=== PATIENT | female | born 1990 | race Caucasian/White ===

== ENCOUNTER 2016-08-05 14:04 | Inpatient (IN) | payer SELFPAY ==
[~2016-08-05] VITALS: Ht 170.2 cm; Wt 91.1 kg
[~2016-08-05 14:04] MED LIST: HYDR-3533 PO; NORC10TA2 PO; ZOFR4TAB3 SL
[2016-08-05 14:10] VITALS: BP 156/103; PULSE 91; RESP 15; TEMP 98.1; O2SAT 99
[2016-08-05] MEDS ORDERED: SODIUM CHLOR 0.9% 1000 ML INJ 1,000 ML IV SCH (14:25)
[2016-08-05] MEDS ORDERED: SODIUM CHLORIDE 0.9% FLUSH 10 ML FLUSH IV FLUSH PRN ×2 (14:30→17:00)
[2016-08-05] MEDS ORDERED: FAMOTIDINE 20 MG/2 ML VIAL IV PUSH ONE (14:30)
[2016-08-05] MEDS ORDERED: ONDANSETRON HCL 4 MG/2 ML VIAL IVP ONE (14:30)
[2016-08-05] MEDS ORDERED: PANTOPRAZOLE SODIUM 40 MG VIAL IVP ONE (14:30)
--- NOTE | 2016-08-05 14:38 | PD ---
HPI Chief Complaint: GI Complaint Time Seen by Provider: 14:25 Travel History International Travel<30 days: No Contact w/Intl Traveler<30days: No Traveled to known affect area: No History of Present Illness HPI Patient presents with complaints of nausea and vomiting for 3 days. Reports poor fluid and by mouth intake. Denies any blood per emesis. Denies any change in bowel habits. Denies any nausea or fever. Denies . Denies any sick contacts. Denies any new antibiotics, travel, new foods or picnics. PFSH Past Medical History ADHD: No Autoimmune Disease: No Blood Disorders: No Anxiety: Yes Depression: Yes Cancer: No Cardiovascular Problems: No Cerebrovascular Accident: No Diabetes: No Diminished Hearing: No Endocrine: No Gastrointestinal Disorders: Yes GERD: Yes (HEARTBURN) Genitourinary: No Headaches: Yes Musculoskeletal: No Neurologic: Yes Psychiatric: Yes Reproductive: No Respiratory: No Migraines: No Seizures: No Thyroid Disease: No Ulcer: No Influenza Vaccination: No ?: Not LMP: 2 WEEKS : 2 Para: 1 Miscarriage: 0 : 1 Past Surgical History Appendectomy: No Cholecystectomy: No Neurologic Surgery: No Other Surgery: No Social History Alcohol Use: Yes (OCC.) Tobacco Use: Yes (1/2 PPD) Substance Use: No Allergies-Medications (Allergen,Severity, Reaction): Coded Allergies: Alcohol (Verified Allergy, Severe, SKING IRRITATION, 08/05/16) Reported Meds & Prescriptions Reported Meds & Active Scripts Active Review of Systems General / Constitutional: No: Fever Eyes: No: Visual changes HENT: No: Headaches Cardiovascular: No: Chest Pain or Discomfort Respiratory: No: Shortness of Breath Gastrointestinal: Positive: Nausea, Vomiting, No: Abdominal Pain Genitourinary: No: Dysuria Musculoskeletal: No: Pain Skin: No Rash Neurologic: No: Weakness Psychiatric: No: Depression Endocrine: No: Polydipsia Hematologic/Lymphatic: No: Easy Bruising Physical Exam Narrative GENERAL: Well-nourished, well-developed patient. SKIN: Focused skin assessment warm/dry. HEAD: Normocephalic. EYES: No scleral icterus. No injection or drainage. NECK: Supple, trachea midline. No JVD or lymphadenopathy. CARDIOVASCULAR: Regular rate and rhythm without murmurs, gallops, or rubs. RESPIRATORY: Breath sounds equal bilaterally. No accessory muscle use. GASTROINTESTINAL: Abdomen soft, non-tender, nondistended. MUSCULOSKELETAL: No cyanosis, or edema. BACK: Nontender without obvious deformity. No CVA tenderness. Data Data Last Documented VS Vital Signs Date Time Temp Pulse Resp B/P Pulse Ox O2 Delivery O2 Flow Rate FiO2 08/05/16 16:11 65 18 131/80 100 Room Air 08/05/16 14:10 98.1 Orders Iv Access Insert/Monitor (08/05/16 14:25) Ecg Monitoring (08/05/16 14:25) Oximetry (08/05/16 14:25) Ondansetron Inj (Zofran Inj) (08/05/16 14:30) Pantoprazole Inj (Protonix Inj) (08/05/16 14:30) Sodium Chlor 0.9% 1000 Ml Inj (Ns 1000 M (08/05/16 14:25) Sodium Chloride 0.9% Flush (Ns Flush) (08/05/16 14:30) Famotidine Inj (Pepcid Inj) (08/05/16 14:30) Metoclopramide Inj (Reglan Inj) (08/05/16 15:00) Diphenhydramine Inj (Benadryl Inj) (08/05/16 15:00) Prochlorperazine Inj (Compazine Inj) (08/05/16 15:45) Sodium Chlor 0.9% 1000 Ml Inj (Ns 1000 M (08/05/16 16:00) Complete Blood Count With Diff (08/05/16 15:54) Comprehensive Metabolic Panel (08/05/16 15:54) Lipase (08/05/16 15:54) Ed Urine Pregnancytest Poc (08/05/16 15:54) Urinalysis - C+S If Indicated (08/05/16 15:54) Urine Culture (08/05/16 15:30) Ceftriaxone Inj (Rocephin Inj) (08/05/16 16:30) Ns + Kcl 20 Meq Inj (Ns + Kcl 20 Meq Inj (08/05/16 16:45) Ondansetron Inj (Zofran Inj) (08/05/16 17:00) Admit Order (Ed Use Only) (08/05/16 16:55) Vital Signs (Adult) Q4H (08/05/16 16:57) Activity Oob Ad Carolyn (08/05/16 16:57) Diet Regular Basic (08/05/16 Dinner) Sodium Chlor 0.9% 1000 Ml Inj (Ns 1000 M (08/05/16 16:57) Sodium Chloride 0.9% Flush (Ns Flush) (08/05/16 17:00) Sodium Chloride 0.9% Flush (Ns Flush) (08/05/16 21:00) Ondansetron Inj (Zofran Inj) (08/05/16 17:00) Complete Blood Count With Diff (08/06/16 06:00) Scd Bilateral/Knee High VALENTIN.BID (08/05/16 16:57) Naloxone Inj (Narcan Inj) (08/05/16 17:00) Potassium Chlor 20 Meq Premix (Kcl 20 Me (08/05/16 17:15) Potassium, Serum (K) (08/05/16 20:00) Comprehensive Metabolic Panel (08/06/16 06:00) Labs Laboratory Tests Test 08/05/16 08/05/16 14:30 15:30 White Blood Count 13.6 TH/MM3 Red Blood Count 4.79 MIL/MM3 Hemoglobin 15.8 GM/DL Hematocrit 46.2 % Mean Corpuscular Volume 96.3 FL Mean Corpuscular Hemoglobin 33.0 PG Mean Corpuscular Hemoglobin 34.3 % Concent Red Cell Distribution Width 15.8 % Platelet Count 216 TH/MM3 Mean Platelet Volume 10.1 FL Neutrophils (%) (Auto) 84.9 % Lymphocytes (%) (Auto) 8.7 % Monocytes (%) (Auto) 4.5 % Eosinophils (%) (Auto) 0.0 % Basophils (%) (Auto) 1.9 % Neutrophils # (Auto) 11.5 TH/MM3 Lymphocytes # (Auto) 1.2 TH/MM3 Monocytes # (Auto) 0.6 TH/MM3 Eosinophils # (Auto) 0.0 TH/MM3 Basophils # (Auto) 0.3 TH/MM3 CBC Comment DIFF FINAL Differential Comment Sodium Level 136 MEQ/L Potassium Level 2.9 MEQ/L Chloride Level 95 MEQ/L Carbon Dioxide Level 28.9 MEQ/L Anion Gap 12 MEQ/L Blood Urea Nitrogen 13 MG/DL Creatinine 0.85 MG/DL Estimat Glomerular Filtration 81 ML/MIN Rate Random Glucose 118 MG/DL Calcium Level 9.4 MG/DL Total Bilirubin 1.2 MG/DL Aspartate Amino Transf 46 U/L (AST/SGOT) Alanine Aminotransferase 103 U/L (ALT/SGPT) Alkaline Phosphatase 84 U/L Total Protein 8.6 GM/DL Albumin 4.4 GM/DL Lipase 92 U/L Urine Collection Type CLEAN CATCH Urine Color SHANA Urine Turbidity MOD Urine pH 7.0 Urine Specific [place] GREATER THAN 1.035 Urine Protein 100 mg/dL Urine Glucose (UA) NEG mg/dL Urine Ketones 80 OR GREATER mg/dL Urine Occult Blood NEG Urine Nitrite POS Urine Bilirubin MOD Urine Leukocyte Esterase TRACE Urine WBC 9-14 /hpf Urine Squamous Epithelial > 8 /hpf Cells Urine Amorphous Sediment FEW Urine Bacteria FEW /hpf Microscopic Urinalysis Comment CULTURE INDICATED Urine Collection Time 1525 MDM Medical Decision Making Medical Screen Exam Complete: Yes Emergency Medical Condition: Yes Differential Diagnosis Gastritis, esophageal stricture, small bowel obstruction Narrative Course Assessment and plan discussed with patient and grandmother at bedside. She did not respond to Zofran Protonix famotidine or Reglan and Benadryl. Trial of Compazine. Physician Communication Physician Communication Case discussed and care transferred to Jaylon Levi MD August 05, 2016 14:38
[2016-08-05 14:41] VITALS: RESP 18; O2SAT 99
[2016-08-05] MEDS ORDERED: METOCLOPRAMIDE HCL 10 MG/2 ML VIAL IV PUSH ONE (15:00)
[2016-08-05] MEDS ORDERED: diphenhydrAMINE HCL 50 MG/ML VIAL IV PUSH ONE (15:00)
[2016-08-05 15:10] VITALS: BP 166/90; PULSE 60; RESP 18; O2SAT 98
[2016-08-05] MEDS ORDERED: PROCHLORPERAZINE INJ 10 MG/2 ML VIAL IM ONE (15:45)
--- NOTE | 2016-08-05 15:54 | PD ---
Physical Exam Date Seen by Provider: August 05, 2016 Time Seen by Provider: 15:52 Narrative The patient is a 26-year-old female was initially evaluated by the previous physician, Dr. Marcos. Please refer to the initial history, physical, diagnostic evaluation, and treatment modality plan. The patient was signed out at 4 PM with reevaluation of intractable nausea/vomiting pending. Data Data Last Documented VS Vital Signs Date Time Temp Pulse Resp B/P Pulse Ox O2 Delivery O2 Flow Rate FiO2 08/05/16 16:11 65 18 131/80 100 Room Air 08/05/16 14:10 98.1 Orders Iv Access Insert/Monitor (08/05/16 14:25) Ecg Monitoring (08/05/16 14:25) Oximetry (08/05/16 14:25) Ondansetron Inj (Zofran Inj) (08/05/16 14:30) Pantoprazole Inj (Protonix Inj) (08/05/16 14:30) Sodium Chlor 0.9% 1000 Ml Inj (Ns 1000 M (08/05/16 14:25) Sodium Chloride 0.9% Flush (Ns Flush) (08/05/16 14:30) Famotidine Inj (Pepcid Inj) (08/05/16 14:30) Metoclopramide Inj (Reglan Inj) (08/05/16 15:00) Diphenhydramine Inj (Benadryl Inj) (08/05/16 15:00) Prochlorperazine Inj (Compazine Inj) (08/05/16 15:45) Sodium Chlor 0.9% 1000 Ml Inj (Ns 1000 M (08/05/16 16:00) Complete Blood Count With Diff (08/05/16 15:54) Comprehensive Metabolic Panel (08/05/16 15:54) Lipase (08/05/16 15:54) Ed Urine Pregnancytest Poc (08/05/16 15:54) Urinalysis - C+S If Indicated (08/05/16 15:54) Urine Culture (08/05/16 15:30) Ceftriaxone Inj (Rocephin Inj) (08/05/16 16:30) Ns + Kcl 20 Meq Inj (Ns + Kcl 20 Meq Inj (08/05/16 16:45) Ondansetron Inj (Zofran Inj) (08/05/16 17:00) Admit Order (Ed Use Only) (08/05/16 16:55) Labs Laboratory Tests Test 08/05/16 08/05/16 14:30 15:30 White Blood Count 13.6 TH/MM3 Red Blood Count 4.79 MIL/MM3 Hemoglobin 15.8 GM/DL Hematocrit 46.2 % Mean Corpuscular Volume 96.3 FL Mean Corpuscular Hemoglobin 33.0 PG Mean Corpuscular Hemoglobin 34.3 % Concent Red Cell Distribution Width 15.8 % Platelet Count 216 TH/MM3 Mean Platelet Volume 10.1 FL Neutrophils (%) (Auto) 84.9 % Lymphocytes (%) (Auto) 8.7 % Monocytes (%) (Auto) 4.5 % Eosinophils (%) (Auto) 0.0 % Basophils (%) (Auto) 1.9 % Neutrophils # (Auto) 11.5 TH/MM3 Lymphocytes # (Auto) 1.2 TH/MM3 Monocytes # (Auto) 0.6 TH/MM3 Eosinophils # (Auto) 0.0 TH/MM3 Basophils # (Auto) 0.3 TH/MM3 CBC Comment DIFF FINAL Differential Comment Sodium Level 136 MEQ/L Potassium Level 2.9 MEQ/L Chloride Level 95 MEQ/L Carbon Dioxide Level 28.9 MEQ/L Anion Gap 12 MEQ/L Blood Urea Nitrogen 13 MG/DL Creatinine 0.85 MG/DL Estimat Glomerular Filtration 81 ML/MIN Rate Random Glucose 118 MG/DL Calcium Level 9.4 MG/DL Total Bilirubin 1.2 MG/DL Aspartate Amino Transf 46 U/L (AST/SGOT) Alanine Aminotransferase 103 U/L (ALT/SGPT) Alkaline Phosphatase 84 U/L Total Protein 8.6 GM/DL Albumin 4.4 GM/DL Lipase 92 U/L Urine Collection Type CLEAN CATCH Urine Color SHANA Urine Turbidity MOD Urine pH 7.0 Urine Specific [place] GREATER THAN 1.035 Urine Protein 100 mg/dL Urine Glucose (UA) NEG mg/dL Urine Ketones 80 OR GREATER mg/dL Urine Occult Blood NEG Urine Nitrite POS Urine Bilirubin MOD Urine Leukocyte Esterase TRACE Urine WBC 9-14 /hpf Urine Squamous Epithelial > 8 /hpf Cells Urine Amorphous Sediment FEW Urine Bacteria FEW /hpf Microscopic Urinalysis Comment CULTURE INDICATED Urine Collection Time 1525 MDM Medical Record Reviewed: Yes Supervised Visit with LUIS: No Interpretation(s) Laboratory Tests Test 08/05/16 08/05/16 14:30 15:30 White Blood Count 13.6 TH/MM3 Red Blood Count 4.79 MIL/MM3 Hemoglobin 15.8 GM/DL Hematocrit 46.2 % Mean Corpuscular Volume 96.3 FL Mean Corpuscular Hemoglobin 33.0 PG Mean Corpuscular Hemoglobin 34.3 % Concent Red Cell Distribution Width 15.8 % Platelet Count 216 TH/MM3 Mean Platelet Volume 10.1 FL Neutrophils (%) (Auto) 84.9 % Lymphocytes (%) (Auto) 8.7 % Monocytes (%) (Auto) 4.5 % Eosinophils (%) (Auto) 0.0 % Basophils (%) (Auto) 1.9 % Neutrophils # (Auto) 11.5 TH/MM3 Lymphocytes # (Auto) 1.2 TH/MM3 Monocytes # (Auto) 0.6 TH/MM3 Eosinophils # (Auto) 0.0 TH/MM3 Basophils # (Auto) 0.3 TH/MM3 CBC Comment DIFF FINAL Differential Comment Sodium Level 136 MEQ/L Potassium Level 2.9 MEQ/L Chloride Level 95 MEQ/L Carbon Dioxide Level 28.9 MEQ/L Anion Gap 12 MEQ/L Blood Urea Nitrogen 13 MG/DL Creatinine 0.85 MG/DL Estimat Glomerular Filtration 81 ML/MIN Rate Random Glucose 118 MG/DL Calcium Level 9.4 MG/DL Total Bilirubin 1.2 MG/DL Aspartate Amino Transf 46 U/L (AST/SGOT) Alanine Aminotransferase 103 U/L (ALT/SGPT) Alkaline Phosphatase 84 U/L Total Protein 8.6 GM/DL Albumin 4.4 GM/DL Lipase 92 U/L Urine Collection Type CLEAN CATCH Urine Color SHANA Urine Turbidity MOD Urine pH 7.0 Urine Specific [place] GREATER THAN 1.035 Urine Protein 100 mg/dL Urine Glucose (UA) NEG mg/dL Urine Ketones 80 OR GREATER mg/dL Urine Occult Blood NEG Urine Nitrite POS Urine Bilirubin MOD Urine Leukocyte Esterase TRACE Urine WBC 9-14 /hpf Urine Squamous Epithelial > 8 /hpf Cells Urine Amorphous Sediment FEW Urine Bacteria FEW /hpf Microscopic Urinalysis Comment CULTURE INDICATED Urine Collection Time 1525 Differential Diagnosis Differential diagnosis includes gastroenteritis, gastritis, , pancreatitis, bladder colic, choledocholithiasis, cholecystitis, pyelonephritis. Narrative Course The patient was initially evaluated by the previous physician, Dr. Marcos. Please refer to the initial history, physical, diagnostic evaluation, and treatment modality plan. The patient was signed out at 4 PM with reevaluation of intractable nausea/vomiting pending. The patient continued to have intractable nausea with dry heaves despite Zofran, Reglan, Benadryl, Compazine, and Protonix. Therefore, labs were drawn and sent and a UA was sent to lab. Bedside UA test was negative. UA reveals 80 ketones, WBCs but nitrites, therefore, patient was administered Rocephin 1 g intravenously, this may be pyelonephritis. The patient's abdominal exam was repeated, she has a negative Fox's and negative McBurney's, there is no guarding or rigidity. She denies any dysuria, frequency, urgency, or vaginal discharge. The patient did have a similar episode in 2010 with pyelonephritis and intractable nausea and vomiting. Patient was reevaluated at 4:36 PM, continue to have nausea with dry heaves despite 4 different medications. The patient will be admitted for intractable nausea and vomiting with pyelonephritis. The patient's potassium is low at 2.9, therefore, IV fluids with potassium replacement were ordered. [facility] were paged for 23 hour observation at 4:47 PM. Physician Communication Physician Communication The on-call medical team was paged for 23 hour observation. I discussed the patient with Dr. Dumont who agrees with 23 hour observation. Diagnosis Primary Impression: Pyelonephritis Additional Impression: Intractable nausea and vomiting Qualified Code: R11.2 - Intractable vomiting with nausea, unspecified vomiting type Admitting Information Admitting Physician Requests: Observation Condition: Stable Simeon Quintanilla MD August 05, 2016 15:54
[2016-08-05] MEDS ORDERED: SODIUM CHLOR 0.9% 1000 ML INJ 1,000 ML IV ONE (16:00)
[2016-08-05 16:06] LABS: AUTOMATED NEUTROPHIL # 11.5 TH/MM3 (1.8-7.7); BASOPHIL # 0.3 TH/MM3 (0-0.2); BASOPHIL % 1.9 % (0.0-2.0); HEMATOCRIT 46.2 % (35.0-46.0); LYMPH % 8.7 % (9.0-44.0); LYMPHOCYTE # 1.2 TH/MM3 (1.0-4.8); MEAN CELL VOLUME 96.3 FL (80.0-100.0); MEAN CORPUSCULAR HGB CONC 34.3 % (32.0-36.0); MONO % 4.5 % (0.0-8.0); NEUT % 84.9 % (16.0-70.0); PLATELET COUNT 216 TH/MM3 (150-450); RED BLOOD COUNT 4.79 MIL/MM3 (4.00-5.30); RED CELL DISTRIBUTION WIDTH 15.8 % (11.6-17.2); WHITE BLOOD COUNT 13.6 TH/MM3 (4.0-11.0)
[2016-08-05 16:07] LABS: HEMO FLAGS DIFF FINAL
[2016-08-05 16:10] LABS: BLOOD, URINE NEG (NEG); GLUCOSE,URINE NEG (NEG)
[2016-08-05 16:11] VITALS: BP 131/80; PULSE 65; RESP 18; O2SAT 100
[2016-08-05 16:14] LABS: KETONE, URINE 80 OR GREATER mg/dL (NEG); NITRITE,URINE POS (NEG)
[2016-08-05 16:15] LABS: METHOD OF COLLECTION CLEAN CATCH; URINE COLOR AMBER (YELLW/STRAW)
[2016-08-05 16:17] LABS: BACTERIA, URINE FEW /hpf; COMMENT (UR) CULTURE INDICATED; COMMENT2 (UR) MUCOUS PRESENT; CULTURE IF INDICATED CULTURE INDICATED; SQUAMOUS EPITHELIAL CELL URINE > 8 /hpf (0-5)
[2016-08-05] MEDS ORDERED: cefTRIAXone INJ 1,000 MG in SODIUM CHLORIDE 0.9% INJ 100 ML IV ONE (16:30)
[2016-08-05 16:32] LABS: ALKALINE PHOSPHATASE 84 U/L (45-117); ALT (GPT) 103 U/L (10-53); ANION GAP 12 MEQ/L (5-15); AST (GOT) 46 U/L (15-37); BICARBONATE 28.9 MEQ/L (21.0-32.0); BLOOD UREA NITROGEN 13 MG/DL (7-18); CHLORIDE 95 MEQ/L (98-107); GLOMERULAR FILTRATION RATE 81 ML/MIN (>89); SODIUM (NA) 136 MEQ/L (136-145); TOTAL BILIRUBIN ADULT 1.2 MG/DL (0.2-1.0)
[2016-08-05 16:43] LABS: POTASSIUM 2.9 MEQ/L (3.5-5.1)
[2016-08-05] MEDS ORDERED: NS + KCL 20 MEQ INJ 1,000 ML IV SCH (16:45)
[2016-08-05] MEDS ORDERED: NALOXONE HCL 0.4 MG/ML AMP IV PRN (17:00)
[2016-08-05] MEDS ORDERED: ONDANSETRON HCL 4 MG/2 ML VIAL IV PUSH ONE (17:00)
--- NOTE | 2016-08-05 17:17 | HHI.HP ---
[facility] Primary [facility]ician No Primary Care Physician Admission Diagnosis intractable nausea/vomiting, pyelonephritis, hypokalemia Diagnoses: (1) Sepsis Diagnosis: Principal (2) suspected pyelonephritis Diagnosis: Principal (3) Intractable nausea and vomiting Diagnosis: Principal (4) Hypokalemia Diagnosis: Principal (5) Elevated LFTs Diagnosis: Principal Chief Complaint: vomiting Travel History International Travel<30 Days: No Contact w/Intl Traveler <30 Da: No Traveled to Known Affected Are: No Sepsis Criteria SIRS Criteria (2 or more): Heart rate over 90, WBC > 86637, < 4000 or > 10% bands Sepsis Criteria (SIRS+source): Infect source susp/known Criteria Outcome: Meets sepsis criteria History of Present Illness Written by Thao Cota PA-C acting as scribe for Dr. Dumont on 08/05/16 at ~ 1710. 26-year-old female with no significant medical problems presents with complaint of nausea and vomiting. She states it started 3 days ago when she was at work. She admits to subjective fevers and chills at home but did not take her temperature. She denies any dysuria. She admits to low back pain now but attributes it to vomiting. She states the nausea medications have not helped. She denies any abdominal pain aside from that due to vomiting. Per EMR she was admitted for pyelonephritis/intractable vomiting in 2010. Patient has also had prior UTIs without vomiting. Review of Systems Except as stated in HPI: all other systems reviewed are Neg Past Family Social History Past Medical History Prior UTIs, pyelonephritis. Past Surgical History ORIF R distal humerus 12/25/14 Reported Medications No medications reported. Allergies: Coded Allergies: Alcohol (Verified Allergy, Severe, SKING IRRITATION, 08/05/16) Family History Mother: Stroke, blood clots; Moy[place]oya disease. Social History Patient drinks alcohol a couple of times per week. Smokes 2 packs of cigarettes per week. Smokes marijuana occasionally. Physical Exam Vital Signs Vital Signs Date Time Temp Pulse Resp B/P Pulse Ox O2 Delivery O2 Flow Rate FiO2 08/05/16 16:11 65 18 131/80 100 Room Air 08/05/16 15:10 60 18 166/90 98 Room Air 08/05/16 14:41 18 99 Room Air 08/05/16 14:10 98.1 91 15 156/103 99 Physical Exam GENERAL: This is a well-nourished, well-developed patient dry heaving on exam. SKIN: No rashes, ecchymoses or lesions. Warm and dry. HEAD: Atraumatic. Normocephalic. EYES: No scleral icterus. No injection or drainage. CARDIOVASCULAR: Regular rate and rhythm. RESPIRATORY: Clear to auscultation. Breath sounds equal bilaterally. GASTROINTESTINAL: Abdomen soft, non-tender, nondistended. BACK: No CVA tenderness bilaterally although patient states it is sore from vomiting. NEUROLOGICAL: Awake and alert. Motor grossly within normal limits. Normal speech. PSYCHIATRIC: Normal mood and affect. Laboratory Laboratory Tests Test 08/05/16 08/05/16 14:30 15:30 White Blood Count 13.6 Red Blood Count 4.79 Hemoglobin 15.8 Hematocrit 46.2 Mean Corpuscular Volume 96.3 Mean Corpuscular Hemoglobin 33.0 Mean Corpuscular Hemoglobin 34.3 Concent Red Cell Distribution Width 15.8 Platelet Count 216 Mean Platelet Volume 10.1 Neutrophils (%) (Auto) 84.9 Lymphocytes (%) (Auto) 8.7 Monocytes (%) (Auto) 4.5 Eosinophils (%) (Auto) 0.0 Basophils (%) (Auto) 1.9 Neutrophils # (Auto) 11.5 Lymphocytes # (Auto) 1.2 Monocytes # (Auto) 0.6 Eosinophils # (Auto) 0.0 Basophils # (Auto) 0.3 CBC Comment DIFF FINAL Differential Comment Sodium Level 136 Potassium Level 2.9 Chloride Level 95 Carbon Dioxide Level 28.9 Anion Gap 12 Blood Urea Nitrogen 13 Creatinine 0.85 Estimat Glomerular Filtration 81 Rate Random Glucose 118 Calcium Level 9.4 Total Bilirubin 1.2 Aspartate Amino Transf 46 (AST/SGOT) Alanine Aminotransferase 103 (ALT/SGPT) Alkaline Phosphatase 84 Total Protein 8.6 Albumin 4.4 Lipase 92 Urine Collection Type CLEAN CATCH Urine Color SHANA Urine Turbidity MOD Urine pH 7.0 Urine Specific [place] GREATER THAN 1.035 Urine Protein 100 Urine Glucose (UA) NEG Urine Ketones 80 OR GREATER Urine Occult Blood NEG Urine Nitrite POS Urine Bilirubin MOD Urine Leukocyte Esterase TRACE Urine WBC 9-14 Urine Squamous Epithelial > 8 Cells Urine Amorphous Sediment FEW Urine Bacteria FEW Microscopic Urinalysis Comment CULTURE INDICATED Urine Collection Time 1525 Date/Time Procedure Status Source Growth 08/05/16 15:30 Urine Culture Received Urine Clean Catch Pending Result Diagram: 08/05/16 1430 08/05/16 1430 Assessment and Plan Assessment and Plan 26-year-old female with: Sepsis: Heart rate 91. White blood cell count 13.6. 84.9% Neutrophils. Source of infection UTI, suspect pyelonephritis. -IV fluids -Antibiotics as below -Telemetry -Blood cultures x 2 ordered -Lactic acid, sepsis protocol -Monitor CBC Suspected pyelonephritis: UA reviewed with positive nitrites, trace leukocyte esterase, and increase in urine white blood cells. Patient received 1 g ceftriaxone in the ED. Patient has no CVA tenderness but has had associated subjective fevers and significant vomiting and has had pyelonephritis in the past. -Continue ceftriaxone 1 g every 24 hours -IVF Intractable n/v: Attributed to pyelonephritis. UA with ketones present. Renal function normal. Status post Compazine, Reglan, Zofran, Benadryl, Protonix, and 1 L bolus of IVF in the ED. -Continue Zofran as needed. Patient currently is only dry heaving. Consider Phenergan suppository if needed. Hypokalemia: 2.9. Attributed to emesis. -40 mEq IV KCl ordered. -Recheck K+ level tonight Elevated LFTs: Total bilirubin 1.2. AST and ALT 46 and 103 respectively. Could be related to vomiting. -Repeat am CMP DVT prevention: SCDs, Lovenox. This note was transcribed by nadine [Thao Cota]. I, Dr. Demetrius Dumont personally performed the history, physical exam, and medical decision making; and confirmed the accuracy of the information in the transcribed note. Authenticated by Dr. Demetrius Dumont on 08/05/16 at 18:50. Discussed Condition With patient Physician Certification 2 Midnight Certification Type: Admission for Inpatient Services Order for Inpatient Services The services are ordered in accordance with Medicare regulations or non- Medicare payer requirements, as applicable. In the case of services not specified as inpatient-only, they are appropriately provided as inpatient services in accordance with the 2-midnight benchmark. Estimated LOS (days): 2 days is the estimated time the patient will need to remain in the hospital, assuming treatment plan goals are met and no additional complications. Post-Hospital Plan: Home Problem Qualifiers (1) Intractable nausea and vomiting: Qualified Code: R11.2 - Intractable vomiting with nausea, unspecified vomiting type Thao Cota August 05, 2016 17:17 Demetrius Dumont MD August 05, 2016 18:51
[2016-08-05 17:55] VITALS: BP 145/97; PULSE 79; RESP 20; TEMP 98.6; O2SAT 97
[2016-08-05] MEDS: SODIUM CHLOR 0.9% 1000 ML INJ 1,000 ML IV SCH ×2 (18:35→20:53)
[2016-08-05] MEDS: POTASSIUM CHLOR 20 MEQ PREMIX 100 ML IV SCH ×2 (18:39→22:47)
[2016-08-05] MEDS: SODIUM CHLORIDE 0.9% FLUSH 10 ML FLUSH IV FLUSH SCH (20:51)
[2016-08-05] MEDS: ENOXAPARIN SODIUM 40 MG/0.4 ML SYRINGE SQ SCH (20:52)
[2016-08-05 21:11] VITALS: BP 129/90; PULSE 80; RESP 18; TEMP 98.2; O2SAT 98
[2016-08-05] MEDS: KETOROLAC TROMETHAMINE 30 MG/ML (IVP) VIAL IV PUSH ONE (22:48)
[2016-08-06] VITALS (7 sets, daily range): BP systolic 139–170; BP diastolic 89–106; PULSE 54–82; RESP 16–22; TEMP 96–98.9; O2SAT 94–100
[2016-08-06] MEDS: KETOROLAC TROMETHAMINE 30 MG/ML (IVP) VIAL IV PUSH ONE (00:42)
[2016-08-06] MEDS: SODIUM CHLOR 0.9% 1000 ML INJ 1,000 ML IV SCH ×3 (02:57→17:44)
[2016-08-06] MEDS: ONDANSETRON HCL 4 MG/2 ML VIAL IVP PRN ×2 (07:22→18:39)
[2016-08-06 07:54] LABS: AUTOMATED NEUTROPHIL # 4.9 TH/MM3 (1.8-7.7); BASOPHIL # 0.2 TH/MM3 (0-0.2); BASOPHIL % 2.2 % (0.0-2.0); EOSINOPHIL # 0.1 TH/MM3 (0-0.4); EOSINOPHIL % 0.7 % (0.0-4.0); HEMATOCRIT 38.1 % (35.0-46.0); LYMPH % 26.1 % (9.0-44.0); MEAN CELL VOLUME 98.4 FL (80.0-100.0); MEAN CORPUSCULAR HEMOGLOBIN 33.4 PG (27.0-34.0); MONO % 5.9 % (0.0-8.0); NEUT % 65.1 % (16.0-70.0); RED BLOOD COUNT 3.87 MIL/MM3 (4.00-5.30); RED CELL DISTRIBUTION WIDTH 16.5 % (11.6-17.2); WHITE BLOOD COUNT 7.6 TH/MM3 (4.0-11.0)
[2016-08-06 07:55] LABS: HEMO FLAGS AUTO DIFF; PLATELET COUNT 141 TH/MM3 (150-450)
[2016-08-06] MEDS ORDERED: METOCLOPRAMIDE HCL 10 MG/2 ML VIAL IV PRN (08:00)
[2016-08-06 08:07] LABS: ALKALINE PHOSPHATASE 55 U/L (45-117); ALT (GPT) 88 U/L (10-53); ANION GAP 7 MEQ/L (5-15); AST (GOT) 72 U/L (15-37); BICARBONATE 28.2 MEQ/L (21.0-32.0); BLOOD UREA NITROGEN 9 MG/DL (7-18); CHLORIDE 107 MEQ/L (98-107); GLOMERULAR FILTRATION RATE 114 ML/MIN (>89); POTASSIUM 3.1 MEQ/L (3.5-5.1); SODIUM (NA) 142 MEQ/L (136-145); TOTAL BILIRUBIN ADULT 0.9 MG/DL (0.2-1.0)
[2016-08-06 08:12] LABS: SCAN/DIFF AUTO DIFF CONFIRMED
[2016-08-06] MEDS: SODIUM CHLORIDE 0.9% FLUSH 10 ML FLUSH IV FLUSH SCH ×2 (08:30→20:27)
[2016-08-06] MEDS: POTASSIUM CHLOR 20 MEQ PREMIX 100 ML IV SCH ×2 (09:48→13:51)
[2016-08-06] MEDS ORDERED: PROMETHAZINE HCL 25 MG SUPP RECTAL ONE (10:00)
--- NOTE | 2016-08-06 10:21 | HHI.PR ---
Subjective Remarks Hypokalemia remains this morning. Nausea with vomiting persists. She has started feeling better overnight but has return of the symptoms this morning. No other new complaints. No fevers. Objective Vital Signs Date Time Temp Pulse Resp B/P Pulse Ox O2 Delivery O2 Flow Rate FiO2 08/06/16 05:05 98.0 80 18 139/89 99 08/06/16 00:54 98.9 82 16 147/99 100 08/05/16 21:11 98.2 80 18 129/90 98 08/05/16 17:55 98.6 79 20 145/97 97 08/05/16 16:11 65 18 131/80 100 Room Air 08/05/16 15:10 60 18 166/90 98 Room Air 08/05/16 14:41 18 99 Room Air 08/05/16 14:10 98.1 91 15 156/103 99 I/O 08/05/16 08/05/16 08/05/16 08/06/16 08/06/16 08/06/16 07:00 15:00 23:00 07:00 15:00 23:00 Intake Total 2340 ml Balance 2340 ml Intake Oral 240 ml IV Total 2100 ml # Voids 2 Result Diagram: 08/06/16 0648 08/06/16 0648 Objective Remarks GENERAL: NAD, A&Ox3 SKIN: Warm and dry. HEAD: Normocephalic. EYES: No scleral icterus. No injection or drainage. NECK: Supple, trachea midline. No JVD or lymphadenopathy. CARDIOVASCULAR: Regular rate and rhythm without murmurs, gallops, or rubs. RESPIRATORY: Breath sounds equal bilaterally. No accessory muscle use. GASTROINTESTINAL: Abdomen soft, non-tender, nondistended. Patient is halting and vomiting basin. MUSCULOSKELETAL: No cyanosis, or edema. A/P Problem List: (1) Intractable nausea and vomiting ICD Code: R11.2 (2) Sepsis ICD Code: A41.9 (3) Pyelonephritis ICD Code: N12 (4) UTI (urinary tract infection) ICD Code: N39.0 Assessment and Plan Assessment and Plan 26-year-old female admitted with hyperemesis and UTI with sepsis. Sepsis Sepsis has resolved. Continue antibiotic treatments for UTI. Monitor for recurrence. Hyperemesis Related to UTI versus pyelonephritis Continue IV hydration Continue when necessary Zofran Protonix every 12 hours IV UTI Suspected pyelonephritis Follow urine cultures Continue Rocephin Resolution of nausea symptoms be evidence of improved degree of inflammation Hypokalemia rechecks were 3.0 last night and 3.1 this morning IV replacement provided again Follow potassium levels Replace as needed Elevated LFTs Improved but not normalized Secondary to infection and hyperemesis Monitor DVT prevention SCDs, Lovenox. Problem Qualifiers (1) Intractable nausea and vomiting: Qualified Code: R11.2 - Intractable vomiting with nausea, unspecified vomiting type Demetrius Dumont MD August 06, 2016 10:21 am
[2016-08-06] MEDS: PANTOPRAZOLE SODIUM 40 MG VIAL IV PUSH SCH ×2 (10:36→23:36)
[2016-08-06] MEDS: HYDROmorphone HCL PF 1 MG/ML VIAL IV PUSH PRN ×3 (11:25→23:37)
[2016-08-06] MEDS: ENALAPRILAT 1.25 MG/ML VIAL IV PUSH PRN (15:30)
[2016-08-06] MEDS ORDERED: cefTRIAXone INJ 1,000 MG in SODIUM CHLORIDE 0.9% INJ 100 ML IV SCH (17:00)
[2016-08-06] MEDS: ENOXAPARIN SODIUM 40 MG/0.4 ML SYRINGE SQ SCH (21:02)
[2016-08-07] VITALS: BP 165/106; PULSE 59; RESP 20; TEMP 99.4; O2SAT 98
[2016-08-07] MEDS: ENALAPRILAT 1.25 MG/ML VIAL IV PUSH PRN (00:34)
[2016-08-07] MEDS: SODIUM CHLOR 0.9% 1000 ML INJ 1,000 ML IV SCH ×2 (00:35→08:50)
[2016-08-07 01:00] VITALS: BP 142/97; PULSE 54; RESP 18; O2SAT 97
[2016-08-07 04:00] VITALS: BP 148/100; PULSE 70; RESP 18; TEMP 98; O2SAT 95
[2016-08-07] MEDS: HYDROmorphone HCL PF 1 MG/ML VIAL IV PUSH PRN (04:59)
[2016-08-07 08:00] VITALS: BP 144/96; PULSE 54; RESP 18; TEMP 97.2; O2SAT 97
[2016-08-07 08:06] LABS: AUTOMATED NEUTROPHIL # 8.1 TH/MM3 (1.8-7.7); BASOPHIL % 0.4 % (0.0-2.0); EOSINOPHIL # 0.1 TH/MM3 (0-0.4); EOSINOPHIL % 0.5 % (0.0-4.0); HEMATOCRIT 37.1 % (35.0-46.0); HEMO FLAGS DIFF FINAL; LYMPH % 21.3 % (9.0-44.0); LYMPHOCYTE # 2.4 TH/MM3 (1.0-4.8); MEAN CELL VOLUME 98.1 FL (80.0-100.0); MEAN CORPUSCULAR HEMOGLOBIN 32.6 PG (27.0-34.0); MEAN CORPUSCULAR HGB CONC 33.2 % (32.0-36.0); MONO % 5.8 % (0.0-8.0); PLATELET COUNT 129 TH/MM3 (150-450); RED BLOOD COUNT 3.78 MIL/MM3 (4.00-5.30); RED CELL DISTRIBUTION WIDTH 15.9 % (11.6-17.2); WHITE BLOOD COUNT 11.3 TH/MM3 (4.0-11.0)
[2016-08-07 08:09] LABS: CHLORIDE 105 MEQ/L (98-107); POTASSIUM 3.1 MEQ/L (3.5-5.1); SODIUM (NA) 141 MEQ/L (136-145)
[2016-08-07 08:20] LABS: ALT (GPT) 126 U/L (10-53); ANION GAP 9 MEQ/L (5-15); BICARBONATE 26.7 MEQ/L (21.0-32.0)
[2016-08-07 08:21] LABS: AST (GOT) 80 U/L (15-37); BLOOD UREA NITROGEN 6 MG/DL (7-18)
[2016-08-07 08:22] LABS: TOTAL BILIRUBIN ADULT 0.8 MG/DL (0.2-1.0)
[2016-08-07 08:24] LABS: ALKALINE PHOSPHATASE 53 U/L (45-117)
[2016-08-07 08:25] LABS: GLOMERULAR FILTRATION RATE 131 ML/MIN (>89)
[2016-08-07] MEDS: ONDANSETRON HCL 4 MG/2 ML VIAL IVP PRN (08:48)
[2016-08-07] MEDS: SODIUM CHLORIDE 0.9% FLUSH 10 ML FLUSH IV FLUSH SCH (08:48)
[2016-08-07] MEDS ORDERED: CEFD300C PO (10:15)
[2016-08-07] MEDS ORDERED: LACTTAB8 PO (10:15)
[2016-08-07] MEDS ORDERED: PROM25TA5 PO (10:15)
[2016-08-07] MEDS ORDERED: NORC5TAB PO (10:16)
[2016-08-07] MEDS: PANTOPRAZOLE SODIUM 40 MG VIAL IV PUSH SCH (10:53)
--- NOTE | 2016-08-07 14:26 | HHI.DS ---
Discharge Summary Admission Date August 05, 2016 at 17:50 Discharge Date: August 07, 2016 Admitting Diagnosis intractable nausea/vomiting, pyelonephritis, hypokalemia (1) Sepsis ICD Code: A41.9 Diagnosis: Principal (2) suspected pyelonephritis Diagnosis: Principal (3) Intractable nausea and vomiting ICD Code: R11.2 Diagnosis: Principal (4) Hypokalemia ICD Code: E87.6 Diagnosis: Principal (5) Elevated LFTs ICD Code: R94.5 Diagnosis: Principal Procedures none Brief History - From Admission Written by Thao Cota PA-C acting as scribe for Dr. Dumont on 08/05/16 at ~ 1710. 26-year-old female with no significant medical problems presents with complaint of nausea and vomiting. She states it started 3 days ago when she was at work. She admits to subjective fevers and chills at home but did not take her temperature. She denies any dysuria. She admits to low back pain now but attributes it to vomiting. She states the nausea medications have not helped. She denies any abdominal pain aside from that due to vomiting. Per EMR she was admitted for pyelonephritis/intractable vomiting in 2010. Patient has also had prior UTIs without vomiting. CBC/BMP: 08/07/16 0605 08/07/16 0605 Significant Findings Laboratory Tests Test 08/05/16 08/05/16 08/05/16 08/06/16 14:30 15:30 19:55 06:48 White Blood Count 13.6 TH/MM3 (4.0-11.0) Hemoglobin 15.8 GM/DL (11.6-15.3) Hematocrit 46.2 % (35.0-46.0) Neutrophils (%) (Auto) 84.9 % (16.0-70.0) Lymphocytes (%) (Auto) 8.7 % (9.0-44.0) Neutrophils # (Auto) 11.5 TH/MM3 (1.8-7.7) Basophils # (Auto) 0.3 TH/MM3 (0-0.2) Potassium Level 2.9 MEQ/L 3.0 MEQ/L 3.1 MEQ/L (3.5-5.1) (3.5-5.1) (3.5-5.1) Chloride Level 95 MEQ/L (98-107) Estimat Glomerular Filtration 81 ML/MIN (>89) Rate Random Glucose 118 MG/DL (74-106) Total Bilirubin 1.2 MG/DL (0.2-1.0) Aspartate Amino Transf 46 U/L (15-37) 72 U/L (15-37) (AST/SGOT) Alanine Aminotransferase 103 U/L (10-53) 88 U/L (10-53) (ALT/SGPT) Total Protein 8.6 GM/DL 6.3 GM/DL (6.4-8.2) (6.4-8.2) Urine Color SHANA (YELLW/STRAW) Urine Turbidity MOD (CLEAR) Urine Specific [place] GREATER THAN 1.035 (1.002-1.035) Urine Protein 100 mg/dL (NEG-TRACE) Urine Ketones 80 OR GREATER mg/dL (NEG) Urine Nitrite POS (NEG) Urine Bilirubin MOD (NEG) Urine Leukocyte Esterase TRACE (NEG) Urine WBC 9-14 /hpf (0-5) Urine Squamous Epithelial > 8 /hpf (0-5) Cells Urine Bacteria FEW /hpf (NONE) Red Blood Count 3.87 MIL/MM3 (4.00-5.30) Platelet Count 141 TH/MM3 (150-450) Basophils (%) (Auto) 2.2 % (0.0-2.0) Calcium Level 7.5 MG/DL (8.5-10.1) Albumin 3.2 GM/DL (3.4-5.0) Test 08/07/16 06:05 White Blood Count 11.3 TH/MM3 (4.0-11.0) Red Blood Count 3.78 MIL/MM3 (4.00-5.30) Platelet Count 129 TH/MM3 (150-450) Neutrophils (%) (Auto) 72.0 % (16.0-70.0) Neutrophils # (Auto) 8.1 TH/MM3 (1.8-7.7) Potassium Level 3.1 MEQ/L (3.5-5.1) Blood Urea Nitrogen 6 MG/DL (7-18) Calcium Level 7.9 MG/DL (8.5-10.1) Aspartate Amino Transf 80 U/L (15-37) (AST/SGOT) Alanine Aminotransferase 126 U/L (10-53) (ALT/SGPT) Total Protein 5.9 GM/DL (6.4-8.2) Albumin 3.1 GM/DL (3.4-5.0) Hospital Course Mrs. Travis is a 26 her old female. She was admitted secondary to hyperemesis in the setting of UTI with possible pyelonephritis. She developed hypokalemia which needed treatment and through her second day she continued to have hyperemesis and hypokalemia. Today she has near resolution of her nausea and is able to tolerate liquids and solids. Her hypokalemia has resolved. Right now she is medically stable for discharge to home. She will continue on by mouth Phenergan as needed. She will also continue Ceftin ear for her UTI/ Pylonephritis. Pt Condition on Discharge: Stable Discharge Disposition: Discharge Home Discharge Time: <= 30 minutes Discharge Instructions DIET: Follow Instructions for: As Tolerated, No Restrictions Activities you can perform: Regular-No Restrictions Follow up Referrals: PCP Follow-up - 2 Weeks New Medications: Cefdinir (Cefdinir) 300 Mg Cap 300 MG PO BID Infection #10 Ref 0 CAP Hydrocodone-Acetaminophen ([place]) 5-325 mg Tab 1 TAB PO Q6H PRN PAIN #12 Ref 0 TAB Lactobacillus Acidophilus (Lactobacillus Acidophilus) 1 Tab Tab 1 TAB PO TIDAC Nutritional Supplement #30 Ref 0 TAB Promethazine (Phenergan) 25 Mg Tab 25 MG PO Q6H PRN Nausea/Vomiting #12 Ref 0 TAB Demetrius Dumont MD August 07, 2016 14:26
== END 2016-08-07 13:30 | disposition home or self-care (01) | DRG 872 ==
LOC: PHED 14:04 → PHEDA 17:04 → PH3A 17:50 → OBSVTOIN 17:50
PROVIDERS: ADMIT Hospitalist; ATTEND Hospitalist
DX: A41.9 Sepsis, unspecified organism (principal); N12 Tubulo-interstitial nephritis, not specified as acute or chronic; E87.6 Hypokalemia; R11.2 Nausea with vomiting, unspecified; R94.5 Abnormal results of liver function studies; Z87.440 Personal history of urinary (tract) infections; F17.210 Nicotine dependence, cigarettes, uncomplicated; F12.90 Cannabis use, unspecified, uncomplicated
CPT/HCPCS: 80053; 81001; 83605; 83690; 84132; 84703; 85025; 87040; 87086; 96361; 96374; 96375; C9113; J0696; J0780; J1170; J1200; J1650; J1885; J2405; J2765; J3480; J7030

== ENCOUNTER 2016-09-22 12:27 | Emergency (ER) | payer SELFPAY ==
[~2016-09-22] VITALS: Ht 167.6 cm; Wt 82.0 kg
[~2016-09-22 12:27] MED LIST changes: +CEFD300C PO; -HYDR-3533 PO; +LACTTAB8 PO; -NORC10TA2 PO; +NORC5TAB PO; +PROM25TA5 PO; -ZOFR4TAB3 SL
[2016-09-22 12:30] VITALS: BP 149/96; PULSE 115; RESP 22; TEMP 98.1; O2SAT 98
[2016-09-22 12:45] VITALS: BP 149/96; PULSE 115; RESP 22; TEMP 98.7; O2SAT 98
[2016-09-22 12:56] LABS: AUTOMATED NEUTROPHIL # 7.3 TH/MM3 (1.8-7.7); BASOPHIL # 0.4 TH/MM3 (0-0.2); BASOPHIL % 3.9 % (0.0-2.0); EOSINOPHIL # 0.1 TH/MM3 (0-0.4); HEMATOCRIT 44.8 % (35.0-46.0); HEMO FLAGS DIFF FINAL; LYMPH % 24.9 % (9.0-44.0); LYMPHOCYTE # 2.7 TH/MM3 (1.0-4.8); MEAN CELL VOLUME 96.4 FL (80.0-100.0); MEAN CORPUSCULAR HEMOGLOBIN 32.8 PG (27.0-34.0); MEAN CORPUSCULAR HGB CONC 34.1 % (32.0-36.0); MONO % 4.8 % (0.0-8.0); NEUT % 65.4 % (16.0-70.0); PLATELET COUNT 231 TH/MM3 (150-450); RED BLOOD COUNT 4.65 MIL/MM3 (4.00-5.30); RED CELL DISTRIBUTION WIDTH 13.3 % (11.6-17.2)
--- NOTE | 2016-09-22 12:56 | PD ---
HPI Chief Complaint: Psychiatric Symptoms Time Seen by Provider: 12:33 Travel History International Travel<30 days: No Contact w/Intl Traveler<30days: No Traveled to known affect area: No History of Present Illness HPI The patient was seen and examined in the presence of the nurse. At no point in time was I in the room without the nurse present. This patient is brought in by a friend. He told nursing staff that the patient has been drinking heavily. Patient admits to drinking last night but denies drinking today. She presents having some type of panic attack. Very challenging to get a history from her. She ignores most questions. She is just sort of sobbing and mewling in the bed and covering her face with her hands. The nurse asked her friend if she does any drugs and his response was "doesn't everybody?" Patient becomes angry during the questioning and decided she wants to leave. Certainly not clear at this point that she is safe to leave. Severity of symptoms is moderate. Duration 1 hour. No alleviating factors PFSH Past Medical History ADHD: No Autoimmune Disease: No Blood Disorders: No Anxiety: Yes Depression: No Heart Rhythm Problems: No Cancer: No Cardiovascular Problems: No High Cholesterol: No Chest Pain: No Congestive Heart Failure: No Cerebrovascular Accident: No Diabetes: No Diminished Hearing: No Endocrine: No Gastrointestinal Disorders: Yes GERD: Yes (HEARTBURN) Genitourinary: No Headaches: Yes Immune Disorder: No Kidney Stones: No Musculoskeletal: No Neurologic: No Psychiatric: No Reproductive: No Respiratory: No Migraines: No Renal Failure: No Seizures: No Thyroid Disease: No Ulcer: No Tetanus Vaccination: > 5 Years Influenza Vaccination: No (UTO) ?: Unknown LMP: Won't answer : 2 Para: 1 Miscarriage: 0 : 1 Past Surgical History Abdominal Surgery: No Appendectomy: No Body Medical Devices: plate and screws in right elbow Cardiac Surgery: No Cholecystectomy: No Ear Surgery: No Endocrine Surgery: No Eye Surgery: No Genitourinary Surgery: No Neurologic Surgery: No Oral Surgery: No Thoracic Surgery: No Other Surgery: No Social History Alcohol Use: Yes (UTO) Tobacco Use: Yes (03/20 PPD) Substance Use: No Allergies-Medications (Allergen,Severity, Reaction): Coded Allergies: Alcohol (Verified Allergy, Severe, SKING IRRITATION, 08/05/16) Reported Meds & Prescriptions Reported Meds & Active Scripts Active Active Prescriptions or Reported Medications Unobtainable Review of Systems General / Constitutional: No: Fever Eyes: No: Visual changes HENT: No: Headaches Cardiovascular: No: Chest Pain or Discomfort Respiratory: No: Shortness of Breath Gastrointestinal: No: Abdominal Pain Genitourinary: No: Dysuria Musculoskeletal: No: Pain Skin: No Rash Neurologic: No: Weakness Psychiatric: Positive: Anxiety, Depression, Substance Abuse Endocrine: No: Polydipsia Hematologic/Lymphatic: No: Easy Bruising Physical Exam Narrative GENERAL: Well-nourished, well-developed patient who is crying and acting childlike. SKIN: Focused skin assessment reveals no rash and nodules. Skin is Warm and dry. HEAD: Atraumatic. Normocephalic. EYES: Pupils equal and round. No scleral icterus. No injection or drainage. ENT: No nasal bleeding or discharge. Mucous membranes pink and moist. NECK: Trachea midline. No JVD. CARDIOVASCULAR: Regular rate and rhythm. No murmur appreciated. RESPIRATORY: No accessory muscle use. Clear to auscultation. Breath sounds equal bilaterally. GASTROINTESTINAL: Abdomen soft, non-tender, nondistended. Hepatic and splenic margins not palpable. MUSCULOSKELETAL: No obvious deformities. No clubbing. No cyanosis. No edema. NEUROLOGICAL: Awake and alert. No obvious cranial nerve deficits. Motor grossly within normal limits. Normal speech. PSYCHIATRIC: Very labile mood and affect; insight and judgment seems poor . Data Data Last Documented VS Vital Signs Date Time Temp Pulse Resp B/P Pulse Ox O2 Delivery O2 Flow Rate FiO2 09/22/16 12:45 98.7 115 22 149/96 98 Room Air Orders Complete Blood Count With Diff (09/22/16 12:38) Basic Metabolic Panel (Bmp) (09/22/16 12:38) Alcohol (Ethanol) (09/22/16 12:38) Iv Access Insert/Monitor (09/22/16 12:38) Ed Urine Pregnancytest Poc (09/22/16 12:38) Drug Screen, Random Urine (09/22/16 12:38) Labs Laboratory Tests Test 09/22/16 09/22/16 12:45 13:45 White Blood Count 11.0 TH/MM3 Red Blood Count 4.65 MIL/MM3 Hemoglobin 15.3 GM/DL Hematocrit 44.8 % Mean Corpuscular Volume 96.4 FL Mean Corpuscular Hemoglobin 32.8 PG Mean Corpuscular Hemoglobin 34.1 % Concent Red Cell Distribution Width 13.3 % Platelet Count 231 TH/MM3 Mean Platelet Volume 9.0 FL Neutrophils (%) (Auto) 65.4 % Lymphocytes (%) (Auto) 24.9 % Monocytes (%) (Auto) 4.8 % Eosinophils (%) (Auto) 1.0 % Basophils (%) (Auto) 3.9 % Neutrophils # (Auto) 7.3 TH/MM3 Lymphocytes # (Auto) 2.7 TH/MM3 Monocytes # (Auto) 0.5 TH/MM3 Eosinophils # (Auto) 0.1 TH/MM3 Basophils # (Auto) 0.4 TH/MM3 CBC Comment DIFF FINAL Differential Comment Sodium Level 144 MEQ/L Potassium Level 3.4 MEQ/L Chloride Level 110 MEQ/L Carbon Dioxide Level 24.3 MEQ/L Anion Gap 10 MEQ/L Blood Urea Nitrogen 5 MG/DL Creatinine 0.78 MG/DL Estimat Glomerular Filtration 89 ML/MIN Rate Random Glucose 90 MG/DL Calcium Level 9.1 MG/DL Ethyl Alcohol Level 168 MG/DL Urine Opiates Screen NEG Urine Barbiturates Screen NEG Urine Amphetamines Screen NEG Urine Benzodiazepines Screen POS Urine Cocaine Screen POS Urine Cannabinoids Screen POS MDM Medical Decision Making Medical Screen Exam Complete: Yes Emergency Medical Condition: Yes Medical Record Reviewed: Yes Differential Diagnosis Drug intoxication, overdose, panic attack, psychiatric problem Narrative Course I have reviewed the patient's electronic medical record. IV placed CBC is normal Metabolic profile is normal Urine is negative Alcohol level is elevated indicating acute intoxication Drug screen is positive for cocaine and marijuana and benzodiazepine Patient has been given time to sober up here and is gradually becoming more coherent she is stable for outpatient follow-up At this point She is calling for a ride She has altered mental status due to polysubstance abuse Diagnosis Primary Impression: Altered mental status Qualified Code: R41.82 - Altered mental status, unspecified altered mental status type Additional Impression: Polysubstance abuse Additional Instructions: The patient was advised to follow up with their physician and return if they worsen. Stop using cocaine and marijuana and drinking excessively Med/Other Pt SpecificInfo: Other Scripts Unable to Obtain Active Prescriptions or Reported Meds Disposition: 01 DISCHARGE HOME Condition: Stable Néstor Anderson MD Sep 22, 2016 12:56
[2016-09-22 13:03] LABS: POTASSIUM 3.4 MEQ/L (3.5-5.1)
[2016-09-22 13:06] LABS: BICARBONATE 24.3 MEQ/L (21.0-32.0)
[2016-09-22 14:00] LABS: BARBITURATES, URINE NEG (NEG)
[2016-09-22 14:01] LABS: COCAINE, URINE POS (NEG)
[2016-09-22 14:10] LABS: AMPHETAMINE, URINE NEG (NEG)
== END 2016-09-22 14:25 | disposition home or self-care (01) ==
LOC: PHED 12:27
DX: R41.82 Altered mental status, unspecified (principal); F19.10 Other psychoactive substance abuse, uncomplicated; F17.210 Nicotine dependence, cigarettes, uncomplicated; F41.9 Anxiety disorder, unspecified
CPT/HCPCS: 80048; 80307; 84703; 85025; 99283

== ENCOUNTER 2016-10-23 22:29 | Emergency (ER) | payer OTHER ==
[~2016-10-23] VITALS: Ht 170.2 cm; Wt 84.0 kg
[2016-10-23 22:49] VITALS: BP 142/98; PULSE 84; RESP 18; TEMP 98; O2SAT 99
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
[2016-10-23 23:26] LABS: BLOOD, URINE NEG (NEG); GLUCOSE,URINE NEG (NEG); KETONE, URINE TRACE mg/dL (NEG)
[2016-10-23 23:34] LABS: MUCUS URINE MANY /lpf (OCC); NITRITE,URINE POS (NEG); URINE COLOR AMBER (YELLW/STRAW)
[2016-10-23] MEDS ORDERED: MACR100C2 PO (23:36)
[2016-10-23 23:37] LABS: COMMENT (UR) CULTURE INDICATED; CULTURE IF INDICATED CULTURE INDICATED
--- NOTE | 2016-10-24 15:35 | EKG ---
Date Performed: 10/23/2016 Time Performed: 23:19:42 PTAGE: 26 years EKG: Sinus rhythm NONSPECIFIC T-WAVE ABNORMALITY BORDERLINE ECG PREVIOUS TRACING : 12/08/2015 22.46 DOCTOR: Pablito Cross Interpretating Date/Time 10/24/2016 15:33:26
== END 2016-10-24 00:36 | disposition home or self-care (01) ==
LOC: PHED 22:29
DX: S20.219A Contusion of unspecified front wall of thorax, initial encounter (principal); S50.311A Abrasion of right elbow, initial encounter; N39.0 Urinary tract infection, site not specified; B96.89 Other specified bacterial agents as the cause of diseases classified elsewhere; V49.50XA Passenger injured in collision with unspecified motor vehicles in traffic accident, initial encounter; Y92.414 Local residential or business street as the place of occurrence of the external cause
CPT/HCPCS: 71020; 73080; 81001; 84703; 87086; 93005; 99285

== ENCOUNTER 2016-12-18 16:57 | Emergency (ER) | payer SELFPAY ==
[~2016-12-18] VITALS: Ht 170.2 cm; Wt 80.0 kg
[~2016-12-18 16:57] MED LIST changes: -CEFD300C PO; -LACTTAB8 PO; +MACR100C2 PO; -NORC5TAB PO; -PROM25TA5 PO
[2016-12-18 17:17] VITALS: BP 151/88; PULSE 96; RESP 16; TEMP 99.2; O2SAT 95
[2016-12-18 17:30] LABS: BLOOD, URINE LARGE (NEG); GLUCOSE,URINE NEG (NEG); KETONE, URINE 15 mg/dL (NEG); NITRITE,URINE NEG (NEG); PH, URINE 6.5 (5.0-8.5)
[2016-12-18 17:32] LABS: METHOD OF COLLECTION CLEAN CATCH; URINE COLOR YELLOW (YELLW/STRAW)
[2016-12-18 17:35] LABS: BACTERIA, URINE MOD /hpf; COMMENT (UR) CULTURE INDICATED; COMMENT2 (UR) MUCOUS PRESENT; CULTURE IF INDICATED CULTURE INDICATED; SQUAMOUS EPITHELIAL CELL URINE 0-5 /hpf (0-5)
--- NOTE | 2016-12-18 18:26 | PD ---
HPI Chief Complaint: Complaint Time Seen by Provider: 06:00 Travel History International Travel<30 days: No Contact w/Intl Traveler<30days: No Traveled to known affect area: No History of Present Illness HPI 26-year-old white female with a history of kidney infections complains of bilateral low back pain, dysuria with nausea, vomiting, subjective fever and chills for 1 week. She says she had a kidney function 4 months ago and was placed in the hospital as a result. She says her medical history is unremarkable and takes Lortab for his obesity. LMP started 4 days ago. He says she is not currently sexually active and denies vaginal discharge or pain. She says her temperature was about 101 earlier today and has not taken Motrin and Tylenol for her pain or fever. She denies lightheadedness, chest pain, shortness of breath. Denies illicit drug use or any other medications. PFSH Past Medical History ADHD: No Autoimmune Disease: No Blood Disorders: No Anxiety: Yes Depression: No Heart Rhythm Problems: No Cancer: No Cardiovascular Problems: No High Cholesterol: No Chest Pain: No Congestive Heart Failure: No Cerebrovascular Accident: No Diabetes: No Diminished Hearing: No Endocrine: No Gastrointestinal Disorders: Yes GERD: Yes (HEARTBURN) Genitourinary: No Headaches: Yes Immune Disorder: No Kidney Stones: No Musculoskeletal: No Neurologic: No Psychiatric: Yes (ANXIETY) Reproductive: No Respiratory: No Migraines: No Renal Failure: No Seizures: No Thyroid Disease: No Ulcer: No ?: Not LMP: 4 DAYS : 2 Para: 1 Miscarriage: 0 : 1 Past Surgical History Abdominal Surgery: No Appendectomy: No Body Medical Devices: plate and screws in right elbow Cardiac Surgery: No Cholecystectomy: No Ear Surgery: No Endocrine Surgery: No Eye Surgery: No Genitourinary Surgery: No Neurologic Surgery: No Oral Surgery: No Thoracic Surgery: No Other Surgery: No Social History Alcohol Use: Yes (OCCASIONAL) Tobacco Use: Yes (1/2 PPD) Substance Use: Yes (MARIJUANA OCCASIONALLY) Allergies-Medications (Allergen,Severity, Reaction): Coded Allergies: alcohol (Unverified Allergy, Severe, SKIN IRRITATION, 12/18/16) Reported Meds & Prescriptions Reported Meds & Active Scripts Active Zofran Odt (Ondansetron Odt) 4 Mg Tab 4 Mg SL Q8HR PRN Levofloxacin 750 Mg Tablet 750 Mg PO DAILY 7 Days Review of Systems Except as stated in HPI: all other systems reviewed are Neg Physical Exam Narrative 26-year-old white female complaining of low back pain, dysuria with nausea and vomiting. GENERAL: Well-developed well-nourished SKIN: Focused skin assessment warm/dry. HEAD: Atraumatic. Normocephalic. EYES: Pupils equal and round. No scleral icterus. No injection or drainage. ENT: No nasal bleeding or discharge. Mucous membranes pink and moist. NECK: Trachea midline. No JVD. CARDIOVASCULAR: Regular rate and rhythm. No murmur appreciated. RESPIRATORY: No accessory muscle use. Clear to auscultation. Breath sounds equal bilaterally. GASTROINTESTINAL: Abdomen soft, non-tender, nondistended. Hepatic and splenic margins not palpable. MUSCULOSKELETAL: No obvious deformities. No clubbing. No cyanosis. No edema. NEUROLOGICAL: Awake and alert. No obvious cranial nerve deficits. Motor grossly within normal limits. Normal speech. PSYCHIATRIC: Appropriate mood and affect; insight and judgment normal. BACK: no CVA tenderness Data Data Last Documented VS Vital Signs Date Time Temp Pulse Resp B/P (MAP) Pulse Ox O2 Delivery O2 Flow Rate FiO2 12/18/16 21:50 92 18 125/70 (88) 97 12/18/16 17:17 99.2 Orders Orders Urinalysis - C+S If Indicated (12/18/16 17:20) Ed Urine Pregnancytest Poc (12/18/16 17:20) Urine Culture (12/18/16 17:10) Sodium Chlor 0.9% 1000 Ml Inj (Ns 1000 M (12/18/16 18:45) Complete Blood Count With Diff (12/18/16 18:31) Basic Metabolic Panel (Bmp) (12/18/16 18:31) Iv Access Insert/Monitor (12/18/16 18:31) Sodium Chloride 0.9% Flush (Ns Flush) (12/18/16 18:45) Levofloxacin (Levaquin) (12/18/16 18:45) Ketorolac Inj (Toradol Inj) (12/18/16 20:15) Oral Rehydration (12/18/16 20:03) Labs Laboratory Tests Test 12/18/16 17:10 12/18/16 18:40 10/2/17 19:07 Urine Collection Type CLEAN CATCH Urine Color YELLOW Urine Turbidity MOD Urine pH 6.5 Urine Specific [place] 1.018 Urine Protein TRACE mg/dL Urine Glucose (UA) NEG mg/dL Urine Ketones 15 mg/dL Urine Occult Blood LARGE Urine Nitrite NEG Urine Bilirubin NEG Urine Leukocyte Esterase MOD Urine RBC 10-14 /hpf Urine WBC 50-99 /hpf Urine WBC Clumps FEW Urine Squamous Epithelial Cells 0-5 /hpf Urine Amorphous Sediment FEW Urine Bacteria MOD /hpf Microscopic Urinalysis Comment CULTURE INDICATED Urine Collection Time 1710 White Blood Count 11.0 TH/MM3 Red Blood Count 4.75 MIL/MM3 Hemoglobin 15.6 GM/DL Hematocrit 46.8 % Mean Corpuscular Volume 98.6 FL Mean Corpuscular Hemoglobin 32.9 PG Mean Corpuscular Hemoglobin Concent 33.3 % Red Cell Distribution Width 14.2 % Platelet Count 285 TH/MM3 Mean Platelet Volume 9.0 FL Neutrophils (%) (Auto) 65.7 % Lymphocytes (%) (Auto) 25.7 % Monocytes (%) (Auto) 3.8 % Eosinophils (%) (Auto) 2.2 % Basophils (%) (Auto) 2.6 % Neutrophils # (Auto) 7.3 TH/MM3 Lymphocytes # (Auto) 2.8 TH/MM3 Monocytes # (Auto) 0.4 TH/MM3 Eosinophils # (Auto) 0.2 TH/MM3 Basophils # (Auto) 0.3 TH/MM3 CBC Comment DIFF FINAL Differential Comment Blood Urea Nitrogen 9 MG/DL Creatinine 0.79 MG/DL Random Glucose 88 MG/DL Calcium Level 8.6 MG/DL Sodium Level 140 MEQ/L Potassium Level 3.2 MEQ/L Chloride Level 103 MEQ/L Carbon Dioxide Level 27.1 MEQ/L Anion Gap 10 MEQ/L Estimat Glomerular Filtration Rate 88 ML/MIN [facility] Medical Decision Making Medical Screen Exam Complete: Yes Emergency Medical Condition: Yes Differential Diagnosis UTI versus cystitis versus pyelonephritis Narrative Course 26-year-old female with dysuria, nausea with vomiting, and low back pain. No history of kidney stones. Says she is not currently sexually active. LMP 4 days ago. Denies illicit drug use. Because of her history I will administer her first dose of antibiotic here in the emergency department, administer fluids and reevaluate. Physical exam demonstrates no CVA tenderness or abdominal pain. UA: see report Labs: no leukocytosis. Mild low potassium Administer fluids and antibiotic. PO challenge was successful. She was reexamined and felt 'much better'. There was no evidence of worsening of her condition. Suspected Cystis versus uncomplicated pyelonephritis. Discussed with my attending and he agreed with the plan. Followup with PCP. I explained to the patient how important it is to follow up with her primary care physician and take all antibiotics are prescribed. She is to return to ED if s/sx worsen or persist. Diagnosis Primary Impression: Bladder infection Additional Instructions: You need to follow up with her primary care physician. He developed fevers, chills, or pain worsens or persists return to the emergency department for further treatment and evaluation. Take all antibiotics as prescribed to reduce stability of complications. Drink plenty of water. Scripts Ondansetron Odt (Zofran Odt) 4 Mg Tab 4 MG SL Q8HR Y for Nausea/Vomiting, #30 TAB 0 Refills Prov: Lisa Goodwin 12/18/16 Levofloxacin (Levofloxacin) 750 Mg Tablet 750 MG PO DAILY for Infection for 7 Days, #5 TAB 0 Refills Prov: Lisa Goodwin 12/18/16 Disposition: 01 DISCHARGE HOME Condition: Stable Lisa Goodwin Dec 18, 2016 18:26
[2016-12-18 18:45] LABS: AUTOMATED NEUTROPHIL # 7.3 TH/MM3 (1.8-7.7); BASOPHIL # 0.3 TH/MM3 (0-0.2); BASOPHIL % 2.6 % (0.0-2.0); EOSINOPHIL # 0.2 TH/MM3 (0-0.4); EOSINOPHIL % 2.2 % (0.0-4.0); HEMATOCRIT 46.8 % (35.0-46.0); HEMO FLAGS DIFF FINAL; LYMPH % 25.7 % (9.0-44.0); LYMPHOCYTE # 2.8 TH/MM3 (1.0-4.8); MEAN CELL VOLUME 98.6 FL (80.0-100.0); MEAN CORPUSCULAR HEMOGLOBIN 32.9 PG (27.0-34.0); MEAN CORPUSCULAR HGB CONC 33.3 % (32.0-36.0); MONO % 3.8 % (0.0-8.0); NEUT % 65.7 % (16.0-70.0); PLATELET COUNT 285 TH/MM3 (150-450); RED BLOOD COUNT 4.75 MIL/MM3 (4.00-5.30); RED CELL DISTRIBUTION WIDTH 14.2 % (11.6-17.2)
[2016-12-18] MEDS ORDERED: LEVOFLOXACIN 750 MG TAB PO ONE (18:45)
[2016-12-18] MEDS ORDERED: SODIUM CHLOR 0.9% 1000 ML INJ 1,000 ML IV SCH (18:45)
[2016-12-18] MEDS ORDERED: SODIUM CHLORIDE 0.9% FLUSH 10 ML FLUSH IVF PRN (18:45)
[2016-12-18 19:24] LABS: POTASSIUM 3.2 MEQ/L (3.5-5.1)
[2016-12-18 19:27] LABS: BICARBONATE 27.1 MEQ/L (21.0-32.0)
[2016-12-18] MEDS ORDERED: KETOROLAC TROMETHAMINE 30 MG/ML (IVP) VIAL IV PUSH ONE (20:15)
[2016-12-18] MEDS ORDERED: ZOFR4TAB3 SL (21:22)
[2016-12-18] MEDS ORDERED: LEVO750T3 PO (21:22)
[2016-12-18 21:50] VITALS: BP 125/70
== END 2016-12-18 21:51 | disposition home or self-care (01) ==
LOC: PHEFT 16:57
DX: N30.90 Cystitis, unspecified without hematuria (principal); F17.210 Nicotine dependence, cigarettes, uncomplicated
CPT/HCPCS: 80048; 81001; 84703; 85025; 87077; 87086; 87186; 96361; 96374; 99284; J1885; J7030

== ENCOUNTER 2017-01-27 22:54 | Emergency (ER) | payer MEDICAID ==
[~2017-01-27] VITALS: Ht 170.2 cm; Wt 80.0 kg
[~2017-01-27 22:54] MED LIST changes: +LEVO750T3 PO; -MACR100C2 PO; +ZOFR4TAB3 SL
[2017-01-27 23:04] VITALS: BP 134/82; PULSE 122; RESP 18; TEMP 98.3; O2SAT 97
--- NOTE | 2017-01-28 01:42 | PD ---
HPI Chief Complaint: Laceration/Skin Injury Time Seen by Provider: 01:41 Travel History International Travel<30 days: No Contact w/Intl Traveler<30days: No Traveled to known affect area: No History of Present Illness HPI 26 old female presents to the emergency department for laceration to the right lower leg. Injury occurred about 3 hours prior to arrival to the emergency department. Patient injured her leg on a broken chair. Patient denies other injury. Tetanus status is current. Patient rates leg pain 7/10 in intensity. Patient states she tripped over a chair on her porch while she was intoxicated and sustained an injury to her leg. Patient states she did not hit her head did not have loss of consciousness did not injure her neck back chest rib abdomen pelvis or other extremities. Patient's last tetanus shot was within the past year according to the patient. PFSH Past Medical History ADHD: No Autoimmune Disease: No Blood Disorders: No Anxiety: Yes Depression: No Heart Rhythm Problems: No Cancer: No Cardiovascular Problems: No High Cholesterol: No Chest Pain: No Congestive Heart Failure: No Cerebrovascular Accident: No Diabetes: No Diminished Hearing: No Endocrine: No Gastrointestinal Disorders: Yes GERD: Yes (HEARTBURN) Genitourinary: No Headaches: Yes Immune Disorder: No Kidney Stones: No Musculoskeletal: No Neurologic: No Psychiatric: Yes (ANXIETY) Reproductive: No Respiratory: No Immunizations Current: Yes Migraines: No Renal Failure: No Seizures: No Thyroid Disease: No Ulcer: No Tetanus Vaccination: < 5 Years Influenza Vaccination: No ?: Not LMP: 01-20-17 : 2 Para: 1 Miscarriage: 0 : 1 Past Surgical History Abdominal Surgery: No Appendectomy: No Body Medical Devices: plate and screws in right elbow Cardiac Surgery: No Cholecystectomy: No Ear Surgery: No Endocrine Surgery: No Eye Surgery: No Genitourinary Surgery: No Neurologic Surgery: No Oral Surgery: No Thoracic Surgery: No Other Surgery: No Social History Alcohol Use: Yes (OCCASIONAL) Tobacco Use: Yes (1/2 PPD) Substance Use: Yes (MARIJUANA OCCASIONALLY) Allergies-Medications (Allergen,Severity, Reaction): Coded Allergies: alcohol (Unverified Allergy, Severe, SKIN IRRITATION, 01/28/17) Reported Meds & Prescriptions Reported Meds & Active Scripts Active Review of Systems Except as stated in HPI: all other systems reviewed are Neg Physical Exam Narrative GENERAL: Well-developed well-nourished female in no acute distress no respiratory distress GCS 15 SKIN: Warm and dry. HEAD: Normocephalic. EYES: No scleral icterus. No injection or drainage. NECK: Supple, trachea midline. No JVD or lymphadenopathy. CARDIOVASCULAR: Regular rate and rhythm without murmurs, gallops, or rubs. RESPIRATORY: Breath sounds equal bilaterally. No accessory muscle use. GASTROINTESTINAL: Abdomen soft, non-tender, nondistended. MUSCULOSKELETAL: No cyanosis, or edema. Attention right lower leg lateral aspect near laceration bleeding controlled no obvious foreign body and neighboring superficial abrasion distally extremity is neurovascular tendon intact. BACK: Nontender without obvious deformity. No CVA tenderness. Data Data Last Documented VS Vital Signs Date Time Temp Pulse Resp B/P (MAP) Pulse Ox O2 Delivery O2 Flow Rate FiO2 01/28/17 03:30 111 16 134/90 (105) 98 01/27/17 23:04 98.3 Orders Orders Tibia/Fibula (Ap/Lat) (01/28/17 ) Lidocaine Pf 1% Inj (Xylocaine-Mpf 1% In (01/28/17 01:45) Ibuprofen (Motrin) (01/28/17 01:45) Ed Discharge Order (01/28/17 03:15) Wound Care (01/28/17 03:15) MDM Medical Decision Making Medical Screen Exam Complete: Yes Emergency Medical Condition: Yes Medical Record Reviewed: Yes Interpretation(s) R leg xr: FINDINGS: Two view examination of the right tibia demonstrates no evidence of fracture or dislocation. Bony mineralization is normal. The soft tissue structures are intact. CONCLUSION: 1. There is no evidence of acute fracture. Nolan Sears MD on January 28, 2017 at 2:27 Board Certified Radiologist. This report was verified electronically. Differential Diagnosis Laceration, neurovascular tendon injury, fracture, retained foreign body Narrative Course Wound site cleansed and laceration required Laceration suturing performed and repaired Tetanus status is current Imaging study reveals no bony injury or retained radiopaque foreign body Procedures Procedure Narrative LACERATION LOCATION: Right lower leg LENGTH: 3.5 cm NUMBER OF STITCHES/ROWAN: 3 REPAIR: The area of the laceration was prepped with Betadine and sterilely draped. The laceration was infiltrated with 1% lidocaine plain. The wound was copiously irrigated and explored without evidence of foreign body, tendon injury or neurovascular injury. The wound was closed using 5-0 nylon. This was a single layer repair. A sterile dressing was applied. The patient was advised to keep the dressing clean and dry. Patient tolerated the procedure well. Diagnosis Primary Impression: Laceration of right lower leg Referrals: Primary Care Physician 2 days Patient Instructions: General Instructions Additional Instructions: Recommend two-day wound check and 7010 day suture removal Keep site clean and dry Follow-up with her primary care provider Return to the emergency department for any concerns or change in condition Med/Other Pt SpecificInfo: No Meds Exist/No RX given Disposition: 01 DISCHARGE HOME Condition: Stable Michelle Quiroga MD Jan 28, 2017 01:42
[2017-01-28] MEDS ORDERED: LIDOCAINE HCL 1% PF 30 ML VIAL INFIL ONE (01:45)
[2017-01-28] MEDS ORDERED: IBUPROFEN 800 MG TAB PO ONE (01:45)
--- NOTE | 2017-01-28 02:29 | RADRPT ---
EXAM DATE/TIME: 01/28/2017 01:53 [facility] COMPARISON: No previous studies available for comparison. INDICATIONS : Tripped over chair, cut on lateral lower leg. MEDICAL HISTORY : None. SURGICAL HISTORY : None. ENCOUNTER: Initial ACUITY: 1 day PAIN SCORE: 0/10 LOCATION: Right lower leg FINDINGS: Two view examination of the right tibia demonstrates no evidence of fracture or dislocation. Bony mi neralization is normal. The soft tissue structures are intact. CONCLUSION: 1. There is no evidence of acute fracture. Nolan Sears MD on January 28, 2017 at 2:27 Board Certified Radiologist. This report was verified electronically.
[2017-01-28 03:00] VITALS: RESP 18
[2017-01-28 03:30] VITALS: BP 134/90
[2017-01-29] MEDS ORDERED: PROM25TA10 PO (11:00)
[2017-01-29] MEDS ORDERED: BACT800T5 PO (11:00)
[2017-01-29] MEDS ORDERED: POTA10CA PO (11:00)
== END 2017-01-28 03:41 | disposition home or self-care (01) ==
LOC: PHED 22:54
DX: S81.811A Laceration without foreign body, right lower leg, initial encounter (principal); F17.200 Nicotine dependence, unspecified, uncomplicated; Z86.59 Personal history of other mental and behavioral disorders; Z87.19 Personal history of other diseases of the digestive system; W22.8XXA Striking against or struck by other objects, initial encounter; Y92.008 Other place in unspecified non-institutional (private) residence as the place of occurrence of the external cause
CPT/HCPCS: 12002; 73590

== ENCOUNTER 2017-01-29 08:35 | Emergency (ER) | payer MEDICAID ==
[~2017-01-29] VITALS: Ht 170.2 cm; Wt 80.0 kg
[2017-01-29 08:47] VITALS: BP 168/91; PULSE 62; RESP 15; TEMP 97.4; O2SAT 99
[2017-01-29] MEDS ORDERED: SODIUM CHLOR 0.9% 1000 ML INJ 1,000 ML IV SCH (09:10)
[2017-01-29] MEDS ORDERED: ONDANSETRON HCL 4 MG/2 ML VIAL IVP ONE (09:15)
[2017-01-29] MEDS ORDERED: SODIUM CHLORIDE 0.9% FLUSH 10 ML FLUSH IV FLUSH PRN (09:15)
[2017-01-29] MEDS ORDERED: PROMETHAZINE INJ 25 MG/ML VIAL IM ONE (09:15)
--- NOTE | 2017-01-29 09:23 | PD ---
HPI Chief Complaint: GI Complaint Time Seen by Provider: 08:57 Travel History International Travel<30 days: No Contact w/Intl Traveler<30days: No Traveled to known affect area: No History of Present Illness HPI 26 years old female complains of persistent nausea vomiting and extremity cramping. Patient states that the symptoms started 2 days ago. Patient was seen in emergency room 2 days ago for right leg laceration. Patient had suture repair of the laceration. Patient states that she started having persistent nausea vomiting since then. Patient states that she has occasional dysuria or increased frequency. Patient states that she has aching low back pain. Patient denies fever chills. Patient denies any headache. Patient denies any chest pain or shortness of breath. Patient denies any abdominal pain. Patient denies any local weakness on numbness of extremity. Patient has history of pyelonephritis with persistent nausea vomiting in the past. PFSH Past Medical History Medical History: Denies Significant Hx ADHD: No Autoimmune Disease: No Blood Disorders: No Anxiety: Yes Depression: No Heart Rhythm Problems: No Cancer: No Cardiovascular Problems: No High Cholesterol: No Chest Pain: No Congestive Heart Failure: No Cerebrovascular Accident: No Diabetes: No Diminished Hearing: No Endocrine: No Gastrointestinal Disorders: Yes GERD: Yes (HEARTBURN) Genitourinary: No Headaches: Yes Immune Disorder: No Kidney Stones: No Musculoskeletal: No Neurologic: No Psychiatric: Yes (ANXIETY) Reproductive: No Respiratory: No Immunizations Current: Yes Migraines: No Renal Failure: No Seizures: No Thyroid Disease: No Ulcer: No Tetanus Vaccination: < 5 Years Influenza Vaccination: No ?: Not LMP: 2 wks ago : 2 Para: 1 Miscarriage: 0 : 1 Past Surgical History Abdominal Surgery: No Appendectomy: No Body Medical Devices: plate and screws in right elbow Cardiac Surgery: No Cholecystectomy: No Ear Surgery: No Endocrine Surgery: No Eye Surgery: No Genitourinary Surgery: No Neurologic Surgery: No Oral Surgery: No Thoracic Surgery: No Other Surgery: No Social History Alcohol Use: Yes (OCCASIONAL) Tobacco Use: Yes (1/2 PPD) Substance Use: No Allergies-Medications (Allergen,Severity, Reaction): Coded Allergies: alcohol (Unverified Allergy, Severe, SKIN IRRITATION, 01/29/17) Reported Meds & Prescriptions Reported Meds & Active Scripts Active No Active Prescriptions or Reported Medications Review of Systems General / Constitutional: No: Fever Eyes: No: Visual changes HENT: No: Headaches Cardiovascular: No: Chest Pain or Discomfort Respiratory: No: Shortness of Breath Gastrointestinal: Positive: Nausea, Vomiting, No: Abdominal Pain Genitourinary: No: Dysuria Musculoskeletal: No: Pain Skin: No Rash Neurologic: No: Weakness Psychiatric: No: Depression Endocrine: No: Polydipsia Hematologic/Lymphatic: No: Easy Bruising Physical Exam Narrative GENERAL: Well-nourished, well-developed patient. SKIN: Focused skin assessment warm/dry. HEAD: Normocephalic. EYES: No scleral icterus. No injection or drainage. NECK: Supple, trachea midline. No JVD or lymphadenopathy. CARDIOVASCULAR: Regular rate and rhythm without murmurs, gallops, or rubs. RESPIRATORY: Breath sounds equal bilaterally. No accessory muscle use. GASTROINTESTINAL: Abdomen soft, non-tender, nondistended. MUSCULOSKELETAL: No cyanosis, or edema. BACK: Nontender without obvious deformity. No CVA tenderness. Neurologic exam normal. Data Data Last Documented VS Vital Signs Date Time Temp Pulse Resp B/P (MAP) Pulse Ox O2 Delivery O2 Flow Rate FiO2 01/29/17 08:47 97.4 62 15 168/91 (116) 99 Orders Orders Complete Blood Count With Diff (01/29/17 09:10) Comprehensive Metabolic Panel (01/29/17 09:10) Lipase (01/29/17 09:10) Urinalysis - C+S If Indicated (01/29/17 09:10) Iv Access Insert/Monitor (01/29/17 09:10) Ecg Monitoring (01/29/17 09:10) Ondansetron Inj (Zofran Inj) (01/29/17 09:15) Sodium Chlor 0.9% 1000 Ml Inj (Ns 1000 M (01/29/17 09:10) Sodium Chloride 0.9% Flush (Ns Flush) (01/29/17 09:15) Promethazine Inj (Phenergan Inj) (01/29/17 09:15) Drug Screen, Random Urine (01/29/17 09:24) Alcohol (Ethanol) (01/29/17 09:15) Potassium Chloride (Kcl) (01/29/17 11:00) Ed Discharge Order (01/29/17 10:57) Labs Laboratory Tests Test 01/29/17:15 01/29/17 10:00 White Blood Count 13.4 TH/MM3 Red Blood Count 4.66 MIL/MM3 Hemoglobin 15.1 GM/DL Hematocrit 44.7 % Mean Corpuscular Volume 96.0 FL Mean Corpuscular Hemoglobin 32.3 PG Mean Corpuscular Hemoglobin Concent 33.7 % Red Cell Distribution Width 13.5 % Platelet Count 280 TH/MM3 Mean Platelet Volume 8.7 FL Neutrophils (%) (Auto) 84.1 % Lymphocytes (%) (Auto) 8.5 % Monocytes (%) (Auto) 3.4 % Eosinophils (%) (Auto) 0.1 % Basophils (%) (Auto) 3.9 % Neutrophils # (Auto) 11.3 TH/MM3 Lymphocytes # (Auto) 1.1 TH/MM3 Monocytes # (Auto) 0.5 TH/MM3 Eosinophils # (Auto) 0.0 TH/MM3 Basophils # (Auto) 0.5 TH/MM3 CBC Comment DIFF FINAL Differential Comment Blood Urea Nitrogen 10 MG/DL Creatinine 0.82 MG/DL Random Glucose 116 MG/DL Total Protein 8.4 GM/DL Albumin 4.2 GM/DL Calcium Level 9.5 MG/DL Alkaline Phosphatase 96 U/L Aspartate Amino Transf (AST/SGOT) 25 U/L Alanine Aminotransferase (ALT/SGPT) 73 U/L Total Bilirubin 1.2 MG/DL Sodium Level 133 MEQ/L Potassium Level 3.2 MEQ/L Chloride Level 93 MEQ/L Carbon Dioxide Level 26.9 MEQ/L Anion Gap 13 MEQ/L Estimat Glomerular Filtration Rate 84 ML/MIN Lipase 94 U/L Ethyl Alcohol Level LESS THAN 3 MG/DL Urine Collection Type VOIDED Urine Color YELLOW Urine Turbidity SLIGHT Urine pH 7.5 Urine Specific [place] 1.035 Urine Protein 30 mg/dL Urine Glucose (UA) NEG mg/dL Urine Ketones 80 OR GREATER mg/dL Urine Occult Blood NEG Urine Nitrite NEG Urine Bilirubin MOD Urine Leukocyte Esterase SMALL Urine WBC 6-8 /hpf Urine Squamous Epithelial Cells >8 /hpf Urine Bacteria FEW /hpf Urine Mucus FEW /lpf Microscopic Urinalysis Comment CULT NOT INDICATED Urine Opiates Screen NEG Urine Barbiturates Screen NEG Urine Amphetamines Screen NEG Urine Benzodiazepines Screen NEG Urine Cocaine Screen NEG Urine Cannabinoids Screen POS MDM Medical Decision Making Medical Screen Exam Complete: Yes Emergency Medical Condition: Yes Interpretation(s) 10:50 AM. CBC WBC 13.4. 84 neutrophil. Sodium 133. Potassium 3.2. Chloride 93. Total bili 1.2. ALT 73. Urine drug screen positive for cannabis. Alcohol negative. UA positive for 68 WBC and few bacteria. Differential Diagnosis Differential diagnosis including gastroenteritis, dehydration, electrolyte imbalance, UTI, pyelonephritis. Narrative Course 26 years old female with persistent nausea vomiting and dysuria and frequency. Normal saline solution 1 L IV bolus. Zofran 4 mg IV. Phenergan 25 mg IM. KCl 20 mEq by mouth given. Diagnosis Primary Impression: Gastroenteritis Additional Impressions: UTI (urinary tract infection) Qualified Codes: N30.00 - Acute cystitis without hematuria Hypokalemia Patient Instructions: General Instructions Additional Instructions: Clear fluids today and advance diet is as tolerated. Take medication as directed. Follow-up with personal physician. Return if persistent problem or worse. Med/Other Pt SpecificInfo: Prescription(s) given Scripts Sulfamethoxazole-Trimethoprim (Bactrim DS) 800-160 Mg Tab 1 TAB PO BID for Infection, #6 TAB 0 Refills Prov: Apollo Gold MD 01/29/17 Potassium Chloride ER (Potassium Chloride ER) 10 Meq Cap 10 MEQ PO DAILY for Electrolyte Replacement, #5 CAP 0 Refills Prov: Apollo Gold MD 01/29/17 Promethazine (Phenergan) 25 Mg Tablet 25 MG PO Q6H Y for NAUSEA OR VOMITING, #12 TAB 0 Refills Prov: Apollo Gold MD 01/29/17 Disposition: 01 DISCHARGE HOME Condition: Stable Apollo Gold MD Jan 29, 2017 09:23
[2017-01-29 09:31] LABS: AUTOMATED NEUTROPHIL # 11.3 TH/MM3 (1.8-7.7); BASOPHIL # 0.5 TH/MM3 (0-0.2); BASOPHIL % 3.9 % (0.0-2.0); EOSINOPHIL % 0.1 % (0.0-4.0); HEMATOCRIT 44.7 % (35.0-46.0); LYMPH % 8.5 % (9.0-44.0); LYMPHOCYTE # 1.1 TH/MM3 (1.0-4.8); MEAN CORPUSCULAR HEMOGLOBIN 32.3 PG (27.0-34.0); MEAN CORPUSCULAR HGB CONC 33.7 % (32.0-36.0); MONO % 3.4 % (0.0-8.0); NEUT % 84.1 % (16.0-70.0); PLATELET COUNT 280 TH/MM3 (150-450); RED BLOOD COUNT 4.66 MIL/MM3 (4.00-5.30); RED CELL DISTRIBUTION WIDTH 13.5 % (11.6-17.2); WHITE BLOOD COUNT 13.4 TH/MM3 (4.0-11.0)
[2017-01-29 09:58] LABS: CHLORIDE 93 MEQ/L (98-107); POTASSIUM 3.2 MEQ/L (3.5-5.1); SODIUM (NA) 133 MEQ/L (136-145)
[2017-01-29 10:04] LABS: HEMO FLAGS DIFF FINAL
[2017-01-29 10:06] LABS: ANION GAP 13 MEQ/L (5-15); BICARBONATE 26.9 MEQ/L (21.0-32.0); BLOOD UREA NITROGEN 10 MG/DL (7-18)
[2017-01-29 10:09] LABS: ALT (GPT) 73 U/L (10-53); AST (GOT) 25 U/L (15-37); GLOMERULAR FILTRATION RATE 84 ML/MIN (>89)
[2017-01-29 10:10] LABS: BLOOD, URINE NEG (NEG); GLUCOSE,URINE NEG (NEG); KETONE, URINE 80 OR GREATER mg/dL (NEG); NITRITE,URINE NEG (NEG); PH, URINE 7.5 (5.0-8.5)
[2017-01-29 10:12] LABS: ALKALINE PHOSPHATASE 96 U/L (45-117)
[2017-01-29 10:13] LABS: TOTAL BILIRUBIN ADULT 1.2 MG/DL (0.2-1.0)
[2017-01-29 10:14] LABS: ALCOHOL LESS THAN 3 MG/DL (0-5)
[2017-01-29 10:19] LABS: METHOD OF COLLECTION VOIDED
[2017-01-29 10:20] LABS: MUCUS URINE FEW /lpf (OCC); URINE COLOR YELLOW (YELLW/STRAW)
[2017-01-29 10:21] LABS: BACTERIA, URINE FEW /hpf; COMMENT (UR) CULT NOT INDICATED; CULTURE IF INDICATED CULT NOT INDICATED; SQUAMOUS EPITHELIAL CELL URINE >8 /hpf (0-5)
[2017-01-29] MEDS ORDERED: POTA10CA PO (11:00)
[2017-01-29] MEDS ORDERED: PROM25TA10 PO (11:00)
[2017-01-29] MEDS ORDERED: BACT800T5 PO (11:00)
[2017-01-29] MEDS ORDERED: POTASSIUM CHLORIDE 20 MEQ CONTROLLED RELEASE TAB PO ONE (11:00)
[2017-01-29 11:17] VITALS: BP 148/91
== END 2017-01-29 11:19 | disposition home or self-care (01) ==
LOC: PHED 08:35
DX: K52.9 Noninfective gastroenteritis and colitis, unspecified (principal); N30.00 Acute cystitis without hematuria; E87.6 Hypokalemia; R82.99 Other abnormal findings in urine; M54.5 Low back pain; F17.210 Nicotine dependence, cigarettes, uncomplicated
CPT/HCPCS: 80053; 80307; 81001; 83690; 85025; 96361; 96372; 96374; 99284; J2405; J2550; J7030

== ENCOUNTER 2017-01-31 13:38 | Emergency (ER) | payer MEDICAID ==
[~2017-01-31] VITALS: Ht 170.2 cm; Wt 81.0 kg
[~2017-01-31 13:38] MED LIST changes: +BACT800T5 PO; -LEVO750T3 PO; +POTA10CA PO; +PROM25TA10 PO; -ZOFR4TAB3 SL
[2017-01-31 13:55] VITALS: BP 162/110; PULSE 75; RESP 20; TEMP 98.2
[2017-01-31] MEDS ORDERED: SODIUM CHLOR 0.9% 1000 ML INJ 1,000 ML IV SCH (13:58)
[2017-01-31] MEDS ORDERED: SODIUM CHLORIDE 0.9% FLUSH 10 ML FLUSH IV FLUSH PRN (14:00)
[2017-01-31] MEDS ORDERED: FAMOTIDINE 20 MG/2 ML VIAL IV PUSH ONE (14:00)
[2017-01-31] MEDS ORDERED: chlorproMAZINE INJ 25 MG in SODIUM CHLORID 0.9% 500 ML INJ 500 ML IV ONE (14:00)
[2017-01-31] MEDS ORDERED: SODIUM CHLOR 0.9% 1000 ML INJ 1,000 ML IV ONE (14:00)
[2017-01-31] MEDS ORDERED: ONDANSETRON HCL 4 MG/2 ML VIAL IVP ONE (14:00)
[2017-01-31] MEDS ORDERED: DICYCLOMINE HCL 10 MG CAP PO ONE (14:00)
--- NOTE | 2017-01-31 14:08 | PD ---
HPI Chief Complaint: GI Complaint Time Seen by Provider: 13:53 Travel History International Travel<30 days: No Contact w/Intl Traveler<30days: No Traveled to known affect area: No History of Present Illness HPI Patient is a 26-year-old female who presents to emergency room with complaints of intractable nausea and vomiting. Patient was seen and treated in the emergency room 2 days ago, she was diagnosed with acute gastroenteritis at that time. Patient reports that she has been symptomatic for the past 4 days with nausea and vomiting. She reports that she cannot seem to keep anything down this time. Patient reports abdominal cramping with no abdominal pain. Patient with no fevers or chills. Patient does admit to smoking marijuana, reports that she last used a few days ago. Patient reports that she is currently taking Bactrim for treatment of a UTI. Patient reports that when she has these bouts of intractable nausea vomiting, she requires 2 doses of antinausea medications, patient requests a dose of IV Zofran and then request Phenergan. Patient with no chest pain or shortness of breath or any complaints at this time. PFSH Past Medical History ADHD: No Autoimmune Disease: No Blood Disorders: No Anxiety: Yes Depression: No Heart Rhythm Problems: No Cancer: No Cardiovascular Problems: No High Cholesterol: No Chest Pain: No Congestive Heart Failure: No Cerebrovascular Accident: No Diabetes: No Diminished Hearing: No Endocrine: No Gastrointestinal Disorders: Yes GERD: Yes (HEARTBURN) Genitourinary: No Headaches: Yes Immune Disorder: No Kidney Stones: No Musculoskeletal: No Neurologic: No Psychiatric: Yes (ANXIETY) Reproductive: No Respiratory: No Immunizations Current: Yes Migraines: No Renal Failure: No Seizures: No Thyroid Disease: No Ulcer: No : 2 Para: 1 Miscarriage: 0 : 1 Past Surgical History Abdominal Surgery: No Appendectomy: No Body Medical Devices: plate and screws in right elbow Cardiac Surgery: No Cholecystectomy: No Ear Surgery: No Endocrine Surgery: No Eye Surgery: No Genitourinary Surgery: No Neurologic Surgery: No Oral Surgery: No Thoracic Surgery: No Other Surgery: No Social History Alcohol Use: Yes (OCCASIONAL) Tobacco Use: Yes (1/2 PPD) Substance Use: No Allergies-Medications (Allergen,Severity, Reaction): Coded Allergies: alcohol (Unverified Allergy, Severe, SKIN IRRITATION, 01/31/17) Reported Meds & Prescriptions Reported Meds & Active Scripts Active Bactrim DS (Sulfamethoxazole-Trimethoprim) 800-160 Mg Tab 1 Tab PO BID Potassium Chloride ER (Potassium Chloride) 10 Meq Cap 10 Meq PO DAILY Phenergan (Promethazine HCl) 25 Mg Tablet 25 Mg PO Q6H PRN Review of Systems General / Constitutional: No: Fever, Chills Eyes: No: Visual changes HENT: No: Headaches Cardiovascular: No: Chest Pain or Discomfort, Palpitations, Irregular Rhythm Respiratory: No: Shortness of Breath Gastrointestinal: Positive: Nausea, Vomiting, Loss of Appetite, No: Abdominal Pain Genitourinary: No: Urgency, Frequency, Dysuria Musculoskeletal: No: Pain Skin: No Rash Neurologic: No: Weakness Psychiatric: No: Depression Endocrine: No: Polydipsia Hematologic/Lymphatic: No: Easy Bruising Physical Exam Narrative GENERAL: mild distress SKIN: Focused skin assessment warm/dry. HEAD: Atraumatic. Normocephalic. EYES: Pupils equal and round. No scleral icterus. No injection or drainage. ENT: No nasal bleeding or discharge. Mucous membranes pink and moist. NECK: Trachea midline. No JVD. CARDIOVASCULAR: Regular rate and rhythm. No murmur appreciated. RESPIRATORY: No accessory muscle use. Clear to auscultation. Breath sounds equal bilaterally. GASTROINTESTINAL: Abdomen soft, non-tender, nondistended. Hepatic and splenic margins not palpable. MUSCULOSKELETAL: No obvious deformities. No clubbing. No cyanosis. No edema. NEUROLOGICAL: Awake and alert. No obvious cranial nerve deficits. Motor grossly within normal limits. Normal speech. PSYCHIATRIC: Anxious mood and affect; insight and judgment normal. Data Data Last Documented VS Vital Signs Date Time Temp Pulse Resp B/P (MAP) Pulse Ox O2 Delivery O2 Flow Rate FiO2 01/31/17 14:50 75 18 137/83 (101) 98 Room Air 01/31/17 13:55 98.2 Orders Orders Complete Blood Count With Diff (01/31/17 13:58) Comprehensive Metabolic Panel (01/31/17 13:58) Urinalysis - C+S If Indicated (01/31/17 13:58) Iv Access Insert/Monitor (01/31/17 13:58) Ecg Monitoring (01/31/17 13:58) Ondansetron Inj (Zofran Inj) (01/31/17 14:00) Sodium Chlor 0.9% 1000 Ml Inj (Ns 1000 M (01/31/17 13:58) Sodium Chloride 0.9% Flush (Ns Flush) (01/31/17 14:00) Famotidine Inj (Pepcid Inj) (01/31/17 14:00) Dicyclomine (Bentyl) (01/31/17 14:00) Ed Urine Pregnancytest Poc (01/31/17 13:58) Drug Screen, Random Urine (01/31/17 13:58) Sodium Chlor 0.9% 1000 Ml Inj (Ns 1000 M (01/31/17 14:00) Chlorpromazine Inj (Thorazine Inj) (01/31/17 14:00) Urine Culture (01/31/17 13:53) Ceftriaxone Inj (Rocephin Inj) (01/31/17 14:30) Promethazine Inj (Phenergan Inj) (01/31/17 15:45) Labs Laboratory Tests Test 01/31/17 13:53 01/31/17 14:02 Urine Collection Type CLEAN CATCH Urine Color YELLOW Urine Turbidity SLIGHT Urine pH 8.0 Urine Specific [place] 1.018 Urine Protein NEG mg/dL Urine Glucose (UA) NEG mg/dL Urine Ketones NEG mg/dL Urine Occult Blood TRACE Urine Nitrite NEG Urine Bilirubin NEG Urine Leukocyte Esterase MOD Urine RBC 0-3 /hpf Urine WBC 20-24 /hpf Urine Squamous Epithelial Cells > 8 /hpf Urine Bacteria FEW /hpf Urine Trichomonas MANY Microscopic Urinalysis Comment CULTURE INDICATED Urine Collection Time 13:53 White Blood Count 14.2 TH/MM3 Red Blood Count 4.80 MIL/MM3 Hemoglobin 15.2 GM/DL Hematocrit 46.2 % Mean Corpuscular Volume 96.2 FL Mean Corpuscular Hemoglobin 31.6 PG Mean Corpuscular Hemoglobin Concent 32.9 % Red Cell Distribution Width 12.9 % Platelet Count 228 TH/MM3 Mean Platelet Volume 9.2 FL Neutrophils (%) (Auto) 83.6 % Lymphocytes (%) (Auto) 9.5 % Monocytes (%) (Auto) 2.1 % Eosinophils (%) (Auto) 0.4 % Basophils (%) (Auto) 4.4 % Neutrophils # (Auto) 11.8 TH/MM3 Lymphocytes # (Auto) 1.4 TH/MM3 Monocytes # (Auto) 0.3 TH/MM3 Eosinophils # (Auto) 0.1 TH/MM3 Basophils # (Auto) 0.6 TH/MM3 CBC Comment DIFF FINAL Differential Comment Blood Urea Nitrogen 11 MG/DL Creatinine 0.78 MG/DL Random Glucose 111 MG/DL Total Protein 7.7 GM/DL Albumin 3.9 GM/DL Calcium Level 9.1 MG/DL Alkaline Phosphatase 82 U/L Aspartate Amino Transf (AST/SGOT) 41 U/L Alanine Aminotransferase (ALT/SGPT) 90 U/L Total Bilirubin 1.2 MG/DL Sodium Level 138 MEQ/L Potassium Level 3.8 MEQ/L Chloride Level 107 MEQ/L Carbon Dioxide Level 17.3 MEQ/L Anion Gap 14 MEQ/L Estimat Glomerular Filtration Rate 89 ML/MIN MDM Medical Decision Making Medical Screen Exam Complete: Yes Emergency Medical Condition: Yes Medical Record Reviewed: Yes Interpretation(s) Vital Signs Date Time Temp Pulse Resp B/P (MAP) Pulse Ox O2 Delivery O2 Flow Rate FiO2 01/31/17 14:50 75 18 137/83 (101) 98 Room Air 01/31/17 13:55 98.2 75 20 162/110 (127) Differential Diagnosis Gastroenteritis, gastritis, cyclic vomiting for marijuana, cystitis, pyelonephritis Narrative Course 26-year-old female who returns to emergency room for evaluation of intractable nausea and vomiting. During the course of the patients emergency department visit, the patients history, examination, and differential diagnosis were reviewed with the patient. The patient was placed on a quality assurance monitor final with oximetry and frequent blood pressure monitoring. The patient had an IV access obtained and blood work sent for analysis. The patient was initially provided IV fluids, IV Zofran as well as IV Thorazine The patients laboratory studies were reviewed and remarkable for: CBC & BMP Diagram 01/31/17 14:02 CBC & BMP Diagram 01/31/17 14:02 Total Protein 7.7 #, Albumin 3.9, Calcium Level 9.1, Alkaline Phosphatase 82, Aspartate Amino Transf (AST/SGOT) 41 H, Alanine Aminotransferase (ALT/SGPT) 90 H , Total Bilirubin 1.2 H UA: Positive for moderate leuk esterase, 20-24 white blood cells, few bacteria, many Trichomonas Plan to treat Trichomonas with oral flagyl for 7 days Previous urine cultures reviewed, patient has had Escherichia coli carotid for urine, it is sensitive to Bactrim as well as Rocephin. An IV dose of Rocephin was ordered Patient reevaluated, patient feeling much better at this time. Patient is able tolerate oral challenge, reviewed all labs and all studies as well as findings with her in detail. Understands that her sexual partner will need to be treated for Trichomonas as well. Patient will follow-up with a primary care doctor and will return to emergency room as needed. Patient was advised to continue the Bactrim that she was started on 2 days ago. Diagnosis Primary Impression: Intractable nausea and vomiting Additional Impressions: UTI (urinary tract infection) Infection due to trichomonas Patient Instructions: General Instructions Additional Instructions: Please follow up with your primary care doctor in 2-3 days Return to the ER if symptoms worsen or progress Return to the ER as needed Please follow-up with all cultures from today Please drink plenty of fluids Please have your sexual partners treated for Trichomonas Med/Other Pt SpecificInfo: Prescription(s) given Disposition: 01 DISCHARGE HOME Condition: Stable Aleta Orantes DO Jan 31, 2017 14:08
[2017-01-31 14:11] LABS: GLUCOSE,URINE NEG (NEG); KETONE, URINE NEG (NEG); NITRITE,URINE NEG (NEG)
[2017-01-31 14:13] LABS: AUTOMATED NEUTROPHIL # 11.8 TH/MM3 (1.8-7.7); BASOPHIL # 0.6 TH/MM3 (0-0.2); BASOPHIL % 4.4 % (0.0-2.0); EOSINOPHIL # 0.1 TH/MM3 (0-0.4); EOSINOPHIL % 0.4 % (0.0-4.0); HEMATOCRIT 46.2 % (35.0-46.0); HEMO FLAGS DIFF FINAL; LYMPH % 9.5 % (9.0-44.0); LYMPHOCYTE # 1.4 TH/MM3 (1.0-4.8); MEAN CELL VOLUME 96.2 FL (80.0-100.0); MEAN CORPUSCULAR HEMOGLOBIN 31.6 PG (27.0-34.0); MEAN CORPUSCULAR HGB CONC 32.9 % (32.0-36.0); MONO % 2.1 % (0.0-8.0); NEUT % 83.6 % (16.0-70.0); PLATELET COUNT 228 TH/MM3 (150-450); RED CELL DISTRIBUTION WIDTH 12.9 % (11.6-17.2); WHITE BLOOD COUNT 14.2 TH/MM3 (4.0-11.0)
[2017-01-31 14:23] LABS: BLOOD, URINE TRACE (NEG); METHOD OF COLLECTION CLEAN CATCH; URINE COLOR YELLOW (YELLW/STRAW)
[2017-01-31 14:24] LABS: RBC, URINE 0-3 /hpf (0-3); SQUAMOUS EPITHELIAL CELL URINE > 8 /hpf (0-5)
[2017-01-31 14:26] LABS: BACTERIA, URINE FEW /hpf; COMMENT (UR) CULTURE INDICATED; CULTURE IF INDICATED CULTURE INDICATED
[2017-01-31] MEDS ORDERED: cefTRIAXone INJ 1,000 MG in SODIUM CHLORIDE 0.9% INJ 100 ML IV ONE (14:30)
[2017-01-31] MEDS ORDERED: METR-1 PO (14:37)
[2017-01-31 14:50] VITALS: BP 137/83; PULSE 75; RESP 18; O2SAT 98
[2017-01-31] MEDS ORDERED: PROMETHAZINE INJ 25 MG/ML VIAL IM ONE (15:45)
[2017-01-31 16:00] VITALS: BP 144/81; PULSE 70; RESP 16; O2SAT 98
[2017-01-31 16:22] LABS: ALKALINE PHOSPHATASE 82 U/L (45-117); ALT (GPT) 90 U/L (10-53); ANION GAP 14 MEQ/L (5-15); AST (GOT) 41 U/L (15-37); BICARBONATE 17.3 MEQ/L (21.0-32.0); BLOOD UREA NITROGEN 11 MG/DL (7-18); CHLORIDE 107 MEQ/L (98-107); GLOMERULAR FILTRATION RATE 89 ML/MIN (>89); POTASSIUM 3.8 MEQ/L (3.5-5.1); SODIUM (NA) 138 MEQ/L (136-145); TOTAL BILIRUBIN ADULT 1.2 MG/DL (0.2-1.0)
[2017-01-31] MEDS ORDERED: ONDANSETRON HCL 4 MG/2 ML VIAL IV PUSH ONE (17:30)
[2017-01-31 17:33] VITALS: BP 144/94
== END 2017-01-31 17:51 | disposition home or self-care (01) ==
LOC: PHED 13:38
DX: N39.0 Urinary tract infection, site not specified (principal); B96.89 Other specified bacterial agents as the cause of diseases classified elsewhere; A59.9 Trichomoniasis, unspecified; F17.200 Nicotine dependence, unspecified, uncomplicated
CPT/HCPCS: 80053; 80307; 81001; 84703; 85025; 87086; 96365; 96366; 96368; 96372; 96375; 96376; 99285; J0696; J2405; J2550; J3230; J7030; J7040

== ENCOUNTER 2017-08-29 15:18 | Observation (INO) | payer MEDICAID, OTHER ==
[~2017-08-29] VITALS: Ht 170.2 cm; Wt 86.6 kg
[2017-08-29 15:25] VITALS: BP 177/116; PULSE 68; RESP 16; TEMP 98.4; O2SAT 98
[2017-08-29] MEDS ORDERED: GABA600T PO (15:40)
[2017-08-29] MEDS ORDERED: TRAZ100T10 PO (15:40)
[2017-08-29] MEDS ORDERED: LEXA20TA PO (15:40)
[2017-08-29] MEDS ORDERED: ONDANSETRON ODT 4 MG TAB PO ONE (15:45)
[2017-08-29] MEDS ORDERED: PROMETHAZINE INJ 25 MG/ML VIAL IM ONE (15:45)
[2017-08-29] MEDS ORDERED: SODIUM CHLOR 0.9% 1000 ML INJ 1,000 ML IV ONE ×2 (15:45→17:30)
[2017-08-29 16:11] LABS: AUTOMATED NEUTROPHIL # 13.2 TH/MM3 (1.8-7.7); BASOPHIL # 0.4 TH/MM3 (0-0.2); BASOPHIL % 2.3 % (0.0-2.0); HEMATOCRIT 43.8 % (35.0-46.0); HEMOGLOBIN 14.7 GM/DL (11.6-15.3); LYMPH % 8.9 % (9.0-44.0); LYMPHOCYTE # 1.4 TH/MM3 (1.0-4.8); MEAN CELL VOLUME 92.8 FL (80.0-100.0); MEAN CORPUSCULAR HEMOGLOBIN 31.1 PG (27.0-34.0); MEAN CORPUSCULAR HGB CONC 33.5 % (32.0-36.0); MEAN PLATELET VOLUME 9.6 FL (7.0-11.0); MONO % 2.5 % (0.0-8.0); MONOCYTE # 0.4 TH/MM3 (0-0.9); NEUT % 86.3 % (16.0-70.0); PLATELET COUNT 228 TH/MM3 (150-450); RED BLOOD COUNT 4.72 MIL/MM3 (4.00-5.30); RED CELL DISTRIBUTION WIDTH 12.6 % (11.6-17.2); WHITE BLOOD COUNT 15.4 TH/MM3 (4.0-11.0)
[2017-08-29] MEDS ORDERED: LIDOCAINE VISCOUS 2% SOLN 15 ML UDC SWISH-SWAL ONE (16:15)
[2017-08-29] MEDS ORDERED: ATROPINE/SCOPOLAM/HYOSCYAM/PB ELIXIR 10 ML CUP PO ONE (16:15)
[2017-08-29] MEDS ORDERED: ALUMINUM/MAGNESIUM/SIMETH 30 ML CUP PO ONE (16:15)
[2017-08-29 16:22] LABS: CHLORIDE 97 MEQ/L (98-107); SODIUM (NA) 135 MEQ/L (136-145)
[2017-08-29 16:26] LABS: ALBUMIN 3.9 GM/DL (3.4-5.0); BICARBONATE 27.9 MEQ/L (21.0-32.0); BLOOD UREA NITROGEN 10 MG/DL (7-18); CALCIUM 9.3 MG/DL (8.5-10.1); GLUCOSE,RANDOM 77 MG/DL (74-106)
[2017-08-29 16:29] LABS: ALT (GPT) 43 U/L (10-53); AST (GOT) 23 U/L (15-37); CREATININE 0.84 MG/DL (0.50-1.00); GLOMERULAR FILTRATION RATE 81 ML/MIN (>89)
[2017-08-29] MEDS ORDERED: METOCLOPRAMIDE HCL 10 MG/2 ML VIAL IV PUSH ONE (16:30)
[2017-08-29 16:31] LABS: TOTAL BILIRUBIN ADULT 0.6 MG/DL (0.2-1.0); TOTAL PROTEIN 8.2 GM/DL (6.4-8.2)
[2017-08-29 16:32] LABS: ALKALINE PHOSPHATASE 88 U/L (45-117)
[2017-08-29 16:55] LABS: BLOOD, URINE NEG (NEG); GLUCOSE,URINE NEG (NEG); KETONE, URINE NEG (NEG); NITRITE,URINE NEG (NEG); URINE COLOR YELLOW (YELLW/STRAW); URINE LEUKOCYTE ESTERASE NEG (NEG)
[2017-08-29 16:58] LABS: BILIRUBIN, URINE NEG (NEG)
[2017-08-29 17:09] LABS: MUCUS URINE MANY /lpf (OCC)
[2017-08-29 17:10] LABS: BACTERIA, URINE FEW /hpf; RBC, URINE 0-3 /hpf (0-3); SQUAMOUS EPITHELIAL CELL URINE 0-5 /hpf (0-5)
[2017-08-29] MEDS ORDERED: cefTRIAXone INJ 1,000 MG in SODIUM CHLORIDE 0.9% INJ 100 ML IV ONE (17:30)
--- NOTE | 2017-08-29 17:33 | PD ---
HPI Chief Complaint: GI Complaint Time Seen by Provider: 15:34 Travel History International Travel<30 days: No Contact w/Intl Traveler<30days: No Traveled to known affect area: No History of Present Illness HPI This is a 27-year-old female who has a history of recurrent nausea and vomiting who presents to the emergency department with 4 days of vomiting, constant, severe, not able to keep anything down associated with some mild abdominal pain that radiates to her back. She has not noticed any dysuria or hematuria. She denies any vaginal discharge or diarrhea. She has been hospitalized for symptoms like this in the past and she often has urinary tract infections. She smokes marijuana once or twice a week and she does drink alcohol but says she has not drank in 6 weeks. PFSH Past Medical History ADHD: No Autoimmune Disease: No Blood Disorders: No Anxiety: Yes Depression: Yes Heart Rhythm Problems: No Cancer: No Cardiovascular Problems: No High Cholesterol: No Chest Pain: No Congestive Heart Failure: No Cerebrovascular Accident: No Diabetes: No Diminished Hearing: No Endocrine: No Gastrointestinal Disorders: Yes GERD: Yes (HEARTBURN) Genitourinary: No Headaches: Yes Immune Disorder: No Kidney Stones: No Musculoskeletal: No Neurologic: No Psychiatric: Yes (ANXIETY) Reproductive: No Respiratory: No Immunizations Current: Yes Migraines: No Renal Failure: No Seizures: No Thyroid Disease: No Ulcer: No Tetanus Vaccination: > 5 Years Influenza Vaccination: No ?: Not LMP: 08/28/17 : 2 Para: 1 Miscarriage: 0 : 1 Past Surgical History Abdominal Surgery: No Appendectomy: No Body Medical Devices: plate and screws in right elbow Cardiac Surgery: No Cholecystectomy: No Ear Surgery: No Endocrine Surgery: No Eye Surgery: No Genitourinary Surgery: No Neurologic Surgery: No Oral Surgery: No Thoracic Surgery: No Other Surgery: No Social History Alcohol Use: No (QUIT 6 WEEKS AGO) Tobacco Use: Yes (1/2 PPD) Substance Use: No Allergies-Medications (Allergen,Severity, Reaction): Coded Allergies: alcohol (Unverified Allergy, Severe, SKIN IRRITATION, 08/29/17) Reported Meds & Prescriptions Reported Meds & Active Scripts Active Reported Lexapro (Escitalopram Oxalate) 20 Mg Tab 20 Mg PO DAILY Trazodone (Trazodone HCl) 100 Mg Tablet 100 Mg PO HS Gabapentin 600 Mg Tab 600 Mg PO TID Review of Systems Except as stated in HPI: all other systems reviewed are Neg Physical Exam Narrative GENERAL: Audibly retching, uncomfortable appearing SKIN: Focused skin assessment warm and dry. HEAD: Atraumatic. Normocephalic. EYES: Pupils equal and round. No injection or drainage. ENT: Moist mucous membranes NECK: Trachea midline. CARDIOVASCULAR: Regular rate and rhythm. No murmur appreciated. RESPIRATORY: Clear to auscultation. Breath sounds equal bilaterally. GASTROINTESTINAL: Abdomen soft, mildly tender to palpation diffusely with no rebound or guarding. MUSCULOSKELETAL: No obvious deformities. NEUROLOGICAL: Awake and alert. No obvious cranial nerve deficits. Moving all extremities. PSYCHIATRIC: Anxious and tearful Data Data Last Documented VS Vital Signs Date Time Temp Pulse Resp B/P (MAP) Pulse Ox O2 Delivery O2 Flow Rate FiO2 08/29/17 18:32 66 16 111/65 (80) 98 Room Air 08/29/17 15:25 98.4 Orders Orders Complete Blood Count With Diff (08/29/17 15:43) Comprehensive Metabolic Panel (08/29/17 15:43) Lipase (08/29/17 15:43) ^ Insert Iv (08/29/17 15:43) Sodium Chlor 0.9% 1000 Ml Inj (Ns 1000 M (08/29/17 15:45) Promethazine Inj (Phenergan Inj) (08/29/17 15:45) Ondansetron Odt (Zofran Odt) (08/29/17 15:45) Al-Mag Hy-Si 40-40-4 Mg/Ml Liq (Mag-Al P (08/29/17 16:15) Lidocaine 2% Viscous (Xylocaine 2% Visco (08/29/17 16:15) Xmcvt-Cqncyi-Zajzhg-Pb Liq ( Liq (08/29/17 16:15) Metoclopramide Inj (Reglan Inj) (08/29/17 16:30) Urinalysis - C+S If Indicated (08/29/17 16:38) Ed Urine Pregnancytest Poc (08/29/17 16:38) Urine Culture (08/29/17 16:40) Ceftriaxone Inj (Rocephin Inj) (08/29/17 17:30) Sodium Chlor 0.9% 1000 Ml Inj (Ns 1000 M (08/29/17 17:30) Labs Laboratory Tests Test 08/29/17 16:00 08/29/17 16:40 White Blood Count 15.4 TH/MM3 Red Blood Count 4.72 MIL/MM3 Hemoglobin 14.7 GM/DL Hematocrit 43.8 % Mean Corpuscular Volume 92.8 FL Mean Corpuscular Hemoglobin 31.1 PG Mean Corpuscular Hemoglobin Concent 33.5 % Red Cell Distribution Width 12.6 % Platelet Count 228 TH/MM3 Mean Platelet Volume 9.6 FL Neutrophils (%) (Auto) 86.3 % Lymphocytes (%) (Auto) 8.9 % Monocytes (%) (Auto) 2.5 % Eosinophils (%) (Auto) 0.0 % Basophils (%) (Auto) 2.3 % Neutrophils # (Auto) 13.2 TH/MM3 Lymphocytes # (Auto) 1.4 TH/MM3 Monocytes # (Auto) 0.4 TH/MM3 Eosinophils # (Auto) 0.0 TH/MM3 Basophils # (Auto) 0.4 TH/MM3 CBC Comment DIFF FINAL Differential Comment Blood Urea Nitrogen 10 MG/DL Creatinine 0.84 MG/DL Random Glucose 77 MG/DL Total Protein 8.2 GM/DL Albumin 3.9 GM/DL Calcium Level 9.3 MG/DL Alkaline Phosphatase 88 U/L Aspartate Amino Transf (AST/SGOT) 23 U/L Alanine Aminotransferase (ALT/SGPT) 43 U/L Total Bilirubin 0.6 MG/DL Sodium Level 135 MEQ/L Potassium Level 3.3 MEQ/L Chloride Level 97 MEQ/L Carbon Dioxide Level 27.9 MEQ/L Anion Gap 10 MEQ/L Estimat Glomerular Filtration Rate 81 ML/MIN Lipase 92 U/L Urine Color YELLOW Urine Turbidity CLEAR Urine pH 6.0 Urine Specific [place] 1.025 Urine Protein TRACE mg/dL Urine Glucose (UA) NEG mg/dL Urine Ketones NEG mg/dL Urine Occult Blood NEG Urine Nitrite NEG Urine Bilirubin NEG Urine Urobilinogen 1.0 MG/DL Urine Leukocyte Esterase NEG Urine RBC 0-3 /hpf Urine WBC 9-14 /hpf Urine Squamous Epithelial Cells 0-5 /hpf Urine Bacteria FEW /hpf Urine Mucus MANY /lpf Microscopic Urinalysis Comment CULTURE INDICATED MDM Medical Decision Making Medical Screen Exam Complete: Yes Emergency Medical Condition: Yes Interpretation(s) Afebrile, no tachycardia, hypertensive Leukocytosis 86% neutrophils Mild hyponatremia Mild hypokalemia Urinalysis demonstrates pyuria with some bacteria Differential Diagnosis Pyelonephritis, gastroenteritis, cyclic vomiting syndrome, cannabis hyperemesis syndrome, gastroparesis Narrative Course This is a 27-year-old female who presents to the emergency department with nausea and vomiting. She has a history of recurrent nausea and vomiting in the past. She is placed on a monitor and IV was established. Labs demonstrate a leukocytosis and urinalysis demonstrates an infection. She was given a dose of ceftriaxone. She was given Phenergan, Zofran and Reglan in the emergency department but she continues to be nauseated and is unable to keep anything down. Patient will be admitted for IV antibiotics and anti-emetics. Diagnosis Primary Impression: Pyelonephritis Admitting Information Admitting Physician Requests: Observation Jessica Jensen MD Aug 29, 2017 17:33
[2017-08-29 18:32] VITALS: BP 111/65; PULSE 66; RESP 16; O2SAT 98
[2017-08-29] MEDS ORDERED: POTASSIUM CHLORIDE 20 MEQ CONTROLLED RELEASE TAB PO ONE (19:00)
[2017-08-29 20:00] VITALS: BP 126/76; PULSE 62; RESP 20; TEMP 98.3; O2SAT 98
[2017-08-29] MEDS ORDERED: PROCHLORPERAZINE INJ 10 MG/2 ML VIAL IV PUSH PRN ×2 (21:00)
[2017-08-29] MEDS: PROCHLORPERAZINE INJ 10 MG/2 ML VIAL IV PUSH PRN (21:09)
[2017-08-29] MEDS: SODIUM CHLORIDE 0.9% FLUSH 10 ML FLUSH IV FLUSH SCH (21:10)
[2017-08-29] MEDS: NS + KCL 20 MEQ INJ 1,000 ML IV SCH (21:10)
[2017-08-29] MEDS: traZODone HCL 100 MG TAB PO SCH (21:10)
[2017-08-29] MEDS: ACETAMINOPHEN/HYDROcodone 325 MG/5 MG TAB PO PRN (21:12)
[2017-08-30] VITALS: BP 121/66; PULSE 59; RESP 20; TEMP 97.3; O2SAT 97
[2017-08-30] MEDS: PROCHLORPERAZINE INJ 10 MG/2 ML VIAL IV PUSH PRN ×6 (02:35→20:04)
[2017-08-30] MEDS: ACETAMINOPHEN/HYDROcodone 325 MG/5 MG TAB PO PRN ×5 (02:36→21:10)
[2017-08-30] MEDS: NS + KCL 20 MEQ INJ 1,000 ML IV SCH ×2 (05:58→12:57)
--- NOTE | 2017-08-30 08:00 | HHI.HP ---
HPI Service [facility] Primary Care Physician No Primary Care Physician Admission Diagnosis Pyelonephritis Diagnoses: (1) Pyelonephritis Chief Complaint: Nausea and vomiting, abdominal pain Travel History International Travel<30 Days: No Contact w/Intl Traveler <30 Da: No Traveled to Known Affected Are: No History of Present Illness This is a 27-year-old female patient with a known medical history of anxiety and depression, GERD who presented to the ED with complaints of nausea and vomiting and abdominal pain. Patient states that her symptoms started 4 days ago with abdominal pain that radiated to her lower back, with associated nausea and vomiting. Patient has been unable to eat for the past 4 days without vomiting. She does admit to subjective fevers and chills although did not take her temperature at home. Patient rates the pain at its worst a 10 out of 10 on pain scale. Denies any dysuria or hematuria. Patient does state that she started her period yesterday, denies any recent vaginal discharge or diarrhea. She does state that she was hospitalized last year for similar complaints and was diagnosed with a urinary tract infection. Denies any history of kidney stones. Does admit to having an ultrasound of her pelvis last year which was unremarkable. She does not follow with the PCP. Review of Systems Constitutional: COMPLAINS OF: Fatigue, Fever, Chills Ears, nose, mouth, throat: DENIES: Vertigo Respiratory: DENIES: Cough Cardiovascular: DENIES: Syncope, Dyspnea on Exertion Gastrointestinal: COMPLAINS OF: Abdominal pain, Nausea, Vomiting, DENIES: Black stools, Bloody stools, Constipation, Diarrhea Genitourinary: DENIES: Abnormal vaginal bleeding Musculoskeletal: DENIES: Joint pain Integumentary: DENIES: Abnormal pigmentation Immunologic/allergic: DENIES: Eczema Neurologic: DENIES: Abnormal gait Psychiatric: COMPLAINS OF: Anxiety Except as stated in HPI: all other systems reviewed are Neg Past Family Social History Past Medical History GERD Anxiety depression History of UTI Past Surgical History Right elbow surgery Reported Medications Active Reported Lexapro (Escitalopram Oxalate) 20 Mg Tab 20 Mg PO DAILY Trazodone (Trazodone HCl) 100 Mg Tablet 100 Mg PO HS Gabapentin 600 Mg Tab 600 Mg PO TID Allergies: Coded Allergies: alcohol (Unverified Allergy, Severe, SKIN IRRITATION, 08/29/17) Active Ordered Medications Current Medications Medications (Trade) Dose Ordered Sig/Bree Route Start Time Stop Time Status Last Admin (NS Flush) 2 ml UNSCH PRN IV FLUSH 08/29/17 19:00 (NS Flush) 2 ml BID IV FLUSH 08/29/17 21:00 08/29/17 21:10 ([place] 5-325 Mg) 1 tab Q4H PRN PO 08/29/17 19:00 08/30/17 10:14 Ceftriaxone Sodium 1000 mg/ Sodium Chloride 100 ml @ 200 mls/hr Q24H IV 08/30/17 09:00 08/30/17 08:48 (Lexapro) 20 mg DAILY PO 08/30/17 09:00 08/30/17 08:48 (Neurontin) 600 mg TID PO 08/30/17 09:00 08/30/17 08:48 (Desyrel) 100 mg HS PO 08/29/17 21:00 08/29/17 21:10 Potassium Chloride/Sodium Chloride 1,000 ml @ 125 mls/hr Q8H IV 08/29/17 21:00 08/30/17 05:58 (Compazine Inj) 5 mg Q4H PRN IV PUSH 08/29/17 21:00 08/30/17 10:13 Family History Maternal medical history significant for hypertension. Social History Patient states she smokes half pack per day of cigarettes for the last 10 years. She does not drink alcohol, states she quit drinking 6 weeks ago. Prior to this she states she was a heavy drinker. Does admit to marijuana use roughly once a week. Physical Exam Vital Signs Vital Signs Date Time Temp Pulse Resp B/P (MAP) Pulse Ox O2 Delivery O2 Flow Rate FiO2 08/30/17 00:00 97.3 59 20 121/66 (84) 97 08/29/17 20:20 08/29/17 20:00 98.3 62 20 126/76 (93) 98 08/29/17 18:32 66 16 111/65 (80) 98 Room Air 08/29/17 15:25 98.4 68 16 177/116 (136) 98 Physical Exam GENERAL: Well-developed, well-nourished patient in [place]. SKIN: Warm and dry. No rash. HEAD: Normocephalic. Atraumatic. EYES: Pupils equal and round. No scleral icterus. No injection or drainage. ENT: No nasal bleeding or discharge. Mucous membranes pink and moist. NECK: Supple. Trachea midline. CARDIOVASCULAR: Regular rate and rhythm. S1, S2 noted. No murmur appreciated. RESPIRATORY: No accessory muscle use. Clear to auscultation. Breath sounds equal bilaterally. GASTROINTESTINAL: Abdomen soft, non-tender, nondistended. Normoactive bowel sounds x4. : Bilateral CVA tenderness. MUSCULOSKELETAL: No obvious deformities. Extremities without clubbing, cyanosis , or edema. NEUROLOGICAL: Awake and alert. No obvious cranial nerve deficits. Motor grossly within normal limits. 5/5 muscle strength in bilateral upper and lower extremities. Normal speech. PSYCHIATRIC: Appropriate mood and affect; insight and judgment normal. Laboratory Laboratory Tests Test 08/29/17 16:00 08/29/17 16:40 White Blood Count 15.4 Red Blood Count 4.72 Hemoglobin 14.7 Hematocrit 43.8 Mean Corpuscular Volume 92.8 Mean Corpuscular Hemoglobin 31.1 Mean Corpuscular Hemoglobin Concent 33.5 Red Cell Distribution Width 12.6 Platelet Count 228 Mean Platelet Volume 9.6 Neutrophils (%) (Auto) 86.3 Lymphocytes (%) (Auto) 8.9 Monocytes (%) (Auto) 2.5 Eosinophils (%) (Auto) 0.0 Basophils (%) (Auto) 2.3 Neutrophils # (Auto) 13.2 Lymphocytes # (Auto) 1.4 Monocytes # (Auto) 0.4 Eosinophils # (Auto) 0.0 Basophils # (Auto) 0.4 CBC Comment DIFF FINAL Differential Comment Blood Urea Nitrogen 10 Creatinine 0.84 Random Glucose 77 Total Protein 8.2 Albumin 3.9 Calcium Level 9.3 Alkaline Phosphatase 88 Aspartate Amino Transf (AST/SGOT) 23 Alanine Aminotransferase (ALT/SGPT) 43 Total Bilirubin 0.6 Sodium Level 135 Potassium Level 3.3 Chloride Level 97 Carbon Dioxide Level 27.9 Anion Gap 10 Estimat Glomerular Filtration Rate 81 Lipase 92 Urine Color YELLOW Urine Turbidity CLEAR Urine pH 6.0 Urine Specific [place] 1.025 Urine Protein TRACE Urine Glucose (UA) NEG Urine Ketones NEG Urine Occult Blood NEG Urine Nitrite NEG Urine Bilirubin NEG Urine Urobilinogen 1.0 Urine Leukocyte Esterase NEG Urine RBC 0-3 Urine WBC 9-14 Urine Squamous Epithelial Cells 0-5 Urine Bacteria FEW Urine Mucus MANY Microscopic Urinalysis Comment CULTURE INDICATED Date/Time Source Procedure Growth Status 08/29/17 16:40 Urine Clean Catch Urine Culture Pending Received Result Diagram: 08/29/17 1600 08/29/17 1600 Imaging Last Impressions Abdomen/Pelvis CT 08/30/17 0000 Signed Impressions: CONCLUSION: 1. A small nonobstructing calculus in the mid left kidney. 2. Mild hepatic steatosis. 3. Otherwise normal exam without evidence of acute process. Septic Shock Reassessment Septic shock perfusion: reassessment completed Caprini VTE Risk Assessment Caprini VTE Risk Assessment: No/Low Risk (score <= 1) Caprini Risk Assessment Model Point Value = 1 Point Value = 2 Point Value = 3 Point Value = 5 Age 41-60 Minor surgery BMI > 25 kg/m2 Swollen legs Varicose veins or History of unexplained or recurrent spontaneous Oral contraceptives or hormone replacement Sepsis (< 1 month) Serious lung disease, including pneumonia (< 1 month) Abnormal pulmonary function Acute myocardial infarction Congestive heart failure (< 1 month) History of inflammatory bowel disease Medical patient at bed rest Age 61-74 Arthroscopic surgery Major open surgery (> 45 min) Laparoscopic surgery (> 45 min) Malignancy Confined to bed (> 72 hours) Immobilizing plaster cast Central venous access Age >= 75 History of VTE Family history of VTE Factor V Leiden Prothrombin [id number] Lupus anticoagulant Anticardiolipin antibodies Elevated serum homocysteine Heparin-induced thrombocytopenia Other congenital or acquired thrombophilia Stroke (< 1 month) Elective arthroplasty Hip, pelvis, or leg fracture Acute spinal cord injury (< 1 month) Prophylaxis Regimen Total Risk Factor Score Risk Level Prophylaxis Regimen 0-1 Low Early ambulation 2 Moderate Order ONE of the following: *Sequential Compression Device (SCD) *Heparin 5000 units SQ BID 3-4 Higher Order ONE of the following medications: *Heparin 5000 units SQ TID *Enoxaparin/Lovenox 40 mg SQ daily (WT < 150 kg, CrCl > 30 mL/min) *Enoxaparin/Lovenox 30 mg SQ daily (WT < 150 kg, CrCl > 10-29 mL/min) *Enoxaparin/Lovenox 30 mg SQ BID (WT < 150 kg, CrCl > 30 mL/min) AND/OR *Sequential Compression Device (SCD) 5 or more Highest Order ONE of the following medications: *Heparin 5000 units SQ TID (Preferred with Epidurals) *Enoxaparin/Lovenox 40 mg SQ daily (WT < 150 kg, CrCl > 30 mL/min) *Enoxaparin/Lovenox 30 mg SQ daily (WT < 150 kg, CrCl > 10-29 mL/min) *Enoxaparin/Lovenox 30 mg SQ BID (WT < 150 kg, CrCl > 30 mL/min) AND *Sequential Compression Device (SCD) Assessment and Plan Problem List: (1) Pyelonephritis ICD Code: N12 - Tubulo-interstitial nephritis, not specified as acute or chronic Status: Acute (2) UTI (urinary tract infection) ICD Code: N39.0 - Urinary tract infection, site not specified Status: Acute Assessment and Plan This is a 27-year-old female patient with a known medical history of anxiety and depression, GERD who presented to the ED with complaints of nausea and vomiting and abdominal pain. Patient states that her symptoms started 4 days ago with abdominal pain that radiated to her lower back, with associated nausea and vomiting. Pyelonephritis with associated abdominal pain, nausea and vomiting Abnormal UA with presence of white blood cells - Patient has mild leukocytosis, WBC 15.4 with bandemia. - Abdominal/pelvis CT showing nonobstructing calculus in the mid left kidney. No hydronephrosis. - Started on ceftriaxone IV, will continue. Follow urine culture. - Pain control with [place] as needed per pain scale. - Compazine for nausea and vomiting. - Supportive care. Continue IVF for now. Encourage PO hydration. Hypokalemia, mild: Suspect secondary to vomiting and poor PO intake - K 3.3. Replete. Follow BMP. History of anxiety depression: continue home medications. DVT prophylaxis: SCDs. Kassandra Hackett Aug 30, 2017 08:00
[2017-08-30] MEDS: SODIUM CHLORIDE 0.9% FLUSH 10 ML FLUSH IV FLUSH SCH ×2 (08:41→20:03)
[2017-08-30] MEDS: ESCITALOPRAM OXALATE 20 MG TAB PO SCH (08:48)
[2017-08-30] MEDS: cefTRIAXone INJ 1,000 MG in SODIUM CHLORIDE 0.9% INJ 100 ML IV SCH (08:48)
[2017-08-30] MEDS: GABAPENTIN 300 MG CAP PO SCH ×4 (08:48→18:00)
[2017-08-30 09:05] VITALS: BP 141/88; PULSE 66; RESP 17; TEMP 97.2; O2SAT 99
[2017-08-30] MEDS ORDERED: IOHEXOL 350 MG/ML 10 ML VIAL (for RAD DIAG) IVCONTRAST ONE (10:43)
--- NOTE | 2017-08-30 11:00 | RADRPT ---
EXAM DATE: 08/30/2017 10:43 AM EDT AGE/SEX: 27 years / Female INDICATIONS: Abdominal pain radiating to back. Nausea and vomiting. CLINICAL DATA: This is the patient's initial encounter. Patient reports that signs and symptoms have been present for 4 - 6 days and indicates a pain score of 8/10. MEDICAL/SURGICAL HISTORY: Gastroesophageal reflux disease. None. ORAL CONTRAST: No oral contrast ingested. RADIATION DOSE: 15.34 CTDI (mGy) COMPARISON: No prior exams available for comparison. TECHNIQUE: Multiple contiguous axial images were obtained through the abdomen and pelvis following b olus infusion of 85 ml Omnipaque 350 (iohexol) nonionic water-soluble contrast as a single exam dos e. No oral contrast ingested. Using automated exposure control and adjustment of the mA and/or kV ac cording to patient size, the radiation dose was kept as low as reasonably achievable to obtain optima l diagnostic quality images. FINDINGS: Lower Lungs: The visualized lower lungs are clear. Liver: The liver is mildly hypodense. The spleen. There are no focal space-occupying lesions or evide nce of biliary duct dilatation. Portal vein is patent. Spleen: Homogeneous density without enlargement. Pancreas: Unremarkable without mass or calcification. Kidneys: Normal in size and shape. No evidence of mass or hydronephrosis. A tiny nonobstructing calc ulus is seen in the mid left kidney. Adrenal Glands: Unremarkable. Aorta: The aorta and proximal iliac vessels are grossly unremarkable without aneurysmal dilation. Bowel/Mesentery: The bowel loops are grossly unremarkable. The cecum and sigmoid colon have a normal configuration. Abdominal Wall: Intact. Retroperitoneum: No evidence of adenopathy in the retrocrural, para-aortic, or deep pelvic regions. Bladder: Contours are smooth. Reproductive Organs: No abnormal masses or calcifications seen. Inguinal: The inguinal region is unremarkable without evidence of adenopathy. Bony Structures: Unremarkable. CONCLUSION: 1. A small nonobstructing calculus in the mid left kidney. 2. Mild hepatic steatosis. 3. Otherwise normal exam without evidence of acute process. Electronically signed by: Stefan Garcias MD 08/30/2017 10:59 AM EDT
[2017-08-30 12:00] VITALS: BP 120/70; PULSE 61; RESP 17; TEMP 97.4; O2SAT 97
[2017-08-30 16:54] VITALS: BP 118/112; PULSE 82; RESP 18; TEMP 97.6; O2SAT 97
[2017-08-30 17:51] VITALS: BP 116/98
[2017-08-30] MEDS ORDERED: PROCHLORPERAZINE MALEATE 10 MG TAB PO PRN (18:30)
[2017-08-30 20:00] VITALS: BP 175/108; PULSE 58; RESP 20; TEMP 98.4; O2SAT 99
[2017-08-30] MEDS: traZODone HCL 100 MG TAB PO SCH (21:09)
[2017-08-31] VITALS: BP 154/82; PULSE 67; RESP 20; TEMP 98; O2SAT 97
[2017-08-31] MEDS: NS + KCL 20 MEQ INJ 1,000 ML IV SCH ×2 (01:45→05:00)
[2017-08-31] MEDS: PROCHLORPERAZINE INJ 10 MG/2 ML VIAL IV PUSH PRN ×3 (01:45→10:11)
[2017-08-31] MEDS: SODIUM CHLORIDE 0.9% FLUSH 10 ML FLUSH IV FLUSH PRN ×2 (01:46→06:25)
[2017-08-31] MEDS: ACETAMINOPHEN/HYDROcodone 325 MG/5 MG TAB PO PRN ×3 (01:46→10:11)
[2017-08-31] MEDS: SODIUM CHLORIDE 0.9% FLUSH 10 ML FLUSH IV FLUSH SCH (08:26)
[2017-08-31] MEDS: cefTRIAXone INJ 1,000 MG in SODIUM CHLORIDE 0.9% INJ 100 ML IV SCH (08:26)
[2017-08-31] MEDS: GABAPENTIN 300 MG CAP PO SCH (08:26)
[2017-08-31] MEDS: ESCITALOPRAM OXALATE 20 MG TAB PO SCH (08:26)
[2017-08-31 09:01] VITALS: BP 140/77; PULSE 64; RESP 17; TEMP 97.9; O2SAT 97
[2017-08-31 09:04] LABS: AUTOMATED NEUTROPHIL # 8.1 TH/MM3 (1.8-7.7); BASOPHIL # 0.1 TH/MM3 (0-0.2); BASOPHIL % 1.1 % (0.0-2.0); EOSINOPHIL # 0.1 TH/MM3 (0-0.4); EOSINOPHIL % 0.7 % (0.0-4.0); HEMATOCRIT 40.2 % (35.0-46.0); HEMOGLOBIN 13.6 GM/DL (11.6-15.3); LYMPH % 21.8 % (9.0-44.0); LYMPHOCYTE # 2.4 TH/MM3 (1.0-4.8); MEAN CELL VOLUME 91.2 FL (80.0-100.0); MEAN CORPUSCULAR HEMOGLOBIN 30.9 PG (27.0-34.0); MEAN CORPUSCULAR HGB CONC 33.9 % (32.0-36.0); MEAN PLATELET VOLUME 9.5 FL (7.0-11.0); MONO % 2.8 % (0.0-8.0); MONOCYTE # 0.3 TH/MM3 (0-0.9); NEUT % 73.6 % (16.0-70.0); PLATELET COUNT 181 TH/MM3 (150-450); RED CELL DISTRIBUTION WIDTH 12.4 % (11.6-17.2)
[2017-08-31] MEDS ORDERED: PROC10TA PO (09:55)
[2017-08-31] MEDS ORDERED: BACT400T PO (09:55)
--- NOTE | 2017-08-31 09:55 | HHI.DCPOC ---
Discharge Care Plan Diagnosis: (1) Pyelonephritis (2) Intractable nausea and vomiting (3) Hypokalemia Goals to Promote Your Health * To prevent worsening of your condition and complications * To maintain your health at the optimal level Directions to Meet Your Goals Take your medications as prescribed Follow your dietary instruction Follow activity as directed Keep your appointments as scheduled Take your immunizations and boosters as scheduled If your symptoms worsen call your PCP, if no PCP go to Urgent Care Center or Emergency Room Smoking is Dangerous to Your Health. Avoid second hand smoke Call the 24-hour hour crisis hotline for domestic abuse at Kassandra Hackett Aug 31, 2017 09:55
--- NOTE | 2017-08-31 09:56 | HHI.PR ---
Subjective Remarks Follow-up pyelonephritis. Patient seen and examined lying in bed comfortably no apparent distress. Patient is much improved is tolerating p.o. intake with no nausea or vomiting, denies any abdominal pain. Has been ambulating with no pain. Patient is eager to go home. Vital signs stable. Afebrile overnight. Objective Vitals Vital Signs Date Time Temp Pulse Resp B/P (MAP) Pulse Ox O2 Delivery O2 Flow Rate FiO2 08/31/17 09:01 97.9 64 17 140/77 (98) 97 08/31/17 00:00 98.0 67 20 154/82 (106) 97 08/30/17 22:10 20 08/30/17 20:00 98.4 58 20 175/108 (130) 99 08/30/17 17:51 116/98 (104) 08/30/17 16:54 97.6 82 18 118/112 (114) 97 08/30/17 12:00 97.4 61 17 120/70 (87) 97 I/O 08/30/17 08/30/17 08/30/17 08/31/17 08/31/17 08/31/17 07:00 15:00 23:00 07:00 15:00 23:00 Intake Total 240 ml 1468 ml 1000 ml Balance 240 ml 1468 ml 1000 ml Intake Oral 240 ml 480 ml 0 ml IV Total 988 ml 1000 ml # Voids 2 6 1 # Bowel Movements 0 Result Diagram: 08/31/17 0840 08/29/17 1600 Imaging Last Impressions Abdomen/Pelvis CT 08/30/17 0000 Signed Impressions: CONCLUSION: 1. A small nonobstructing calculus in the mid left kidney. 2. Mild hepatic steatosis. 3. Otherwise normal exam without evidence of acute process. Objective Remarks GENERAL: Well-developed, well-nourished patient in [facility]. SKIN: Warm and dry. No rash. HEAD: Normocephalic. Atraumatic. EYES: Pupils equal and round. No scleral icterus. No injection or drainage. ENT: No nasal bleeding or discharge. Mucous membranes pink and moist. NECK: Supple. Trachea midline. CARDIOVASCULAR: Regular rate and rhythm. S1, S2 noted. No murmur appreciated. RESPIRATORY: No accessory muscle use. Clear to auscultation. Breath sounds equal bilaterally. GASTROINTESTINAL: Abdomen soft, non-tender, nondistended. Normoactive bowel sounds x4. : No CVA tenderness. MUSCULOSKELETAL: No obvious deformities. Extremities without clubbing, cyanosis , or edema. NEUROLOGICAL: Awake and alert. No obvious cranial nerve deficits. Motor grossly within normal limits. 5/5 muscle strength in bilateral upper and lower extremities. Normal speech. PSYCHIATRIC: Appropriate mood and affect; insight and judgment normal. A/P Problem List: (1) Pyelonephritis ICD Code: N12 - Tubulo-interstitial nephritis, not specified as acute or chronic Status: Acute (2) UTI (urinary tract infection) ICD Code: N39.0 - Urinary tract infection, site not specified Status: Acute Assessment and Plan This is a 27-year-old female patient with a known medical history of anxiety and depression, GERD who presented to the ED with complaints of nausea and vomiting and abdominal pain. Patient states that her symptoms started 4 days ago with abdominal pain that radiated to her lower back, with associated nausea and vomiting. Pyelonephritis with associated abdominal pain, nausea and vomiting Abnormal UA with presence of white blood cells - Patient has mild leukocytosis, WBC 15.4 with bandemia. Has improved today, white blood cell 11. - Abdominal/pelvis CT showing nonobstructing calculus in the mid left kidney. No hydronephrosis. - Started on ceftriaxone IV, will continue. Urine culture showing mixed gram- positive. - Pain control with [place] as needed per pain scale. Has not needed any pain medicines. - Compazine for nausea and vomiting. Has resolved. - Supportive care. Patient tolerating p.o. intake. Hypokalemia, mild: Suspect secondary to vomiting and poor PO intake. Resolved. - Status post repletion. History of anxiety depression: continue home medications. DVT prophylaxis: SCDs. Discharge Planning Discharge patient to home. Condition on discharge: Improved. Regular Diet as tolerated. Ad Carolyn activity. Rx written: Please see discharge instructions. Follow-up with primary care physician. Kassandra Hackett Aug 31, 2017 09:56
[2017-08-31 10:12] LABS: BICARBONATE 26.6 MEQ/L (21.0-32.0); CALCIUM 8.8 MG/DL (8.5-10.1); CREATININE 0.67 MG/DL (0.50-1.00)
== END 2017-08-31 14:02 | disposition home or self-care (01) ==
LOC: PHED 15:18 → PHEDA 18:48 → PH3A 20:12
PROVIDERS: ADMIT Hospitalist; ATTEND Hospitalist
DX: N12 Tubulo-interstitial nephritis, not specified as acute or chronic (principal); R11.2 Nausea with vomiting, unspecified; R10.9 Unspecified abdominal pain; F12.90 Cannabis use, unspecified, uncomplicated; F41.8 Other specified anxiety disorders; F32.9 Major depressive disorder, single episode, unspecified; R12 Heartburn; F17.210 Nicotine dependence, cigarettes, uncomplicated; Z79.899 Other long term (current) drug therapy; E87.1 Hypo-osmolality and hyponatremia; E87.6 Hypokalemia; D72.829 Elevated white blood cell count, unspecified; B96.89 Other specified bacterial agents as the cause of diseases classified elsewhere; N20.0 Calculus of kidney; K76.0 Fatty (change of) liver, not elsewhere classified; D72.825 Bandemia
CPT/HCPCS: 74177; 80048; 80053; 81001; 83690; 84703; 85025; 87086; 96361; 96365; 96366; 96372; 96375; 96376; 99285; G0378; J0696; J0780; J2550; J2765; J3480; J7030; Q9967